=== PATIENT | male | born 1980 | race Caucasian/White ===

== ENCOUNTER → 2016-03-31 | Outpatient (CLI) | payer MEDICAID | LOC: RAD 10:39 | PROVIDERS: ATTEND Family Medicine | DX: M25.571 Pain in right ankle and joints of right foot (principal) ==

== ENCOUNTER 2016-04-20 21:28 | Emergency (ER) | payer MEDICAID ==
[2016-04-20] MEDS ORDERED: IBUPROFEN 800 MG TABLET PO ONE (21:42)
--- NOTE | 2016-04-20 21:45 | ER Document Report ---
ED Medical Screen (RME) - General Stated Complaint: ANKLE PAIN Notes: Patient states he initially injured right ankle about 3 months ago. States he had an x-ray on it which showed no fractures. In the last week and a half patient states he has rolled his ankle about 24 times. He states he continues to have some swelling to the ankle, and is very painful to walk. He states he needs to get this taken care of before it gets any worse. I have greeted and performed a rapid initial assessment of this patient. A comprehensive ED assessment and evaluation of the patient, analysis of test results and completion of the medical decision making process will be conducted by additional ED providers. TRAVEL OUTSIDE OF THE [place] IN LAST 30 DAYS: No - Related Data Allergies/Adverse Reactions: imipramine [Imipramine] Allergy (Severe, Verified 05/29/15 10:39) Hives Past Medical History - Past Medical History Cardiac Medical History: Reports: Hx Hypertension - hx of no meds Denies: Hx Coronary Artery Disease, Hx Heart Attack Pulmonary Medical History: Reports: Hx Asthma - bronchial has inhalers, Hx Bronchitis, Hx Pneumonia - hx of Denies: Hx COPD Neurological Medical History: Reports: Hx Seizures - petit mal as child 1985 no current meds. Denies: Hx Cerebrovascular Accident Musculoskeltal Medical History: Denies Hx Arthritis Psychiatric Medical History: Reports: Hx Attention Deficit Hyperactivity Disorder, Hx Depression Traumatic Medical History: Reports: Hx Spine Fracture - Immunizations Hx Diphtheria, Pertussis, Tetanus Vaccination: No Physical Exam - Vital signs Vitals: Temp Pulse Resp BP Pulse Ox 98.2 F 92 18 145/90 H 100 04/20/16 21:36 04/20/16 21:36 04/20/16 21:36 04/20/16 21:36 04/20/16 21:36 Course - Vital Signs Vital signs: Temp Pulse Resp BP Pulse Ox 98.2 F 92 18 145/90 H 100 04/20/16 21:36 04/20/16 21:36 04/20/16 21:36 04/20/16 21:36 04/20/16 21:36
--- NOTE | 2016-04-20 23:19 | ER Document Report ---
ED General - General Chief Complaint: Ankle Pain Stated Complaint: ANKLE PAIN Notes: Patient is a 36-year-old male who presents with complaint of pain in his right ankle. Patient is rolled his ankle many times in the last 3 months. He says is gone to the point that every time he puts his foot down that she feels as of his ankles can turn inward. He has not worn a brace. He is not use crutches. He is not provided a supportive to his anchor other than an occasional Marcus bandage. He has followed with his primary care doctor. He's had x-rays which were negative. He says his injured his ankle a times since his last x-ray 2 weeks ago. TRAVEL OUTSIDE OF THE [place] IN LAST 30 DAYS: No - Related Data Allergies/Adverse Reactions: imipramine [Imipramine] Allergy (Severe, Verified 05/29/15 10:39) Hives Past Medical History - Social History Smoking Status: Never Smoker Frequency of alcohol use: None Drug Abuse: None Family History: Reviewed & Not Pertinent - Past Medical History Cardiac Medical History: Reports: Hx Hypertension - hx of no meds Denies: Hx Coronary Artery Disease, Hx Heart Attack Pulmonary Medical History: Reports: Hx Asthma - bronchial has inhalers, Hx Bronchitis, Hx Pneumonia - hx of Denies: Hx COPD Neurological Medical History: Reports: Hx Seizures - petit mal as child 1985 no current meds. Denies: Hx Cerebrovascular Accident Renal/ Medical History: Denies: Hx Peritoneal Dialysis Musculoskeltal Medical History: Denies Hx Arthritis Psychiatric Medical History: Reports: Hx Attention Deficit Hyperactivity Disorder, Hx Depression Traumatic Medical History: Reports: Hx Spine Fracture - Immunizations Hx Diphtheria, Pertussis, Tetanus Vaccination: No Review of Systems - Review of Systems Notes: My Normal Review Basic REVIEW OF SYSTEMS: CONSTITUTIONAL : Denies fever, chills, or sweats. Denies recent illness. MUSCULOSKELETAL: Right ankle pain SKIN: Denies rash or skin lesions. NEUROLOGICAL: Denies altered mental status or loss of consciousness. Denies headache. Denies weakness or paralysis or loss of use of either side. Denies problems with gait or speech. Denies sensory or motor loss. ALL OTHER SYSTEMS REVIEWED AND NEGATIVE. Physical Exam - Vital signs Vitals: Temp Pulse Resp BP Pulse Ox 98.2 F 92 18 145/90 H 100 04/20/16 21:36 04/20/16 21:36 02/04/17 21:36 04/20/16 21:36 04/20/16 21:36 - Notes Notes: General Appearance: Well nourished, alert, cooperative, no acute distress, no obvious discomfort. Vitals: reviewed, See vital signs table. Extremities: strength 5/5 in all extremities, good pulses in all extremities, patient's has pain with palpation of both medial lateral aspect of the right ankle. There is no pain palpation of Achilles tendon. Distal foot is nontender., no edema. Patient has good strength in the foot. Good distal sensation. Skin: warm, dry, appropriate color, no rash Neuro: speech clear, oriented x 3, normal affect, responds appropriately to questions. Course - Vital Signs Vital signs: Temp Pulse Resp BP Pulse Ox 98.2 F 92 18 145/90 H 100 04/20/16 21:36 04/20/16 21:36 04/20/16 21:36 04/20/16 21:36 04/20/16 21:36 - Transfer of Care Notes: 04/21/16 00:22 Patient's history and physical exam findings are consistent with a sprain ankle. Patient will be discharged home. Patient given an ankle splint. I strongly encouraged him use crutches. He has crutches at home. I encourage lower for him to the orthopedic office being that he's had multiple recurrent ankle sprains and injuries in the last 3 months and his ankle has been unstable for him. Patient's x-ray shows no acute concerning findings. Patient agrees with plan will be discharged home. Dictation of this chart was performed using voice recognition software; therefore, there may be some unintended grammatical errors. Discharge - Discharge Clinical Impression: Ankle sprain Qualifiers: Encounter type: initial encounter Involved ligament of ankle: unspecified ligament Laterality: right Qualified Code(s): S93.401A - Sprain of unspecified ligament of right ankle, initial encounter Condition: Good Disposition: HOME, SELF-CARE Instructions: Sprained Ankle ([facility]) Additional Instructions: Ankle Stirrup Splint You are to use an ankle brace called a stirrup splint. This type of brace allows you to place greater stresses on the ankle without risk of re-injury, and is often used for more severe ankle injuries such as avulsion fractures and ligament ruptures. The splint can be worn over a sock or tape. For proper support, wear the splint with a shoe over it. It's important that the splint fit properly. Adjust the heel tension, if needed. If your splint has air bladders, peel back the bottom of each air bladder, then move the Velcro attachment of the heel strap up or down. Air bladder pressure can be adjusted by pulling up the valve at the top, threading the air tube down into the main bladder, then blowing air into the bladder or squeezing it out. The two sides of the stirrup can be moved forward or back on your ankle by changing the attachment of the main straps. If you are unable to use the ankle comfortably in the splint, return for re -evaluation. Please wear the splints. Please use crutches at home. Please be nonweightbearing as much as possible for the next week. Please follow-up with the orthopedic clinic for further evaluation and for further treatment options such as possible referral to physical therapy or more definitive treatment as they feel necessary. Referrals: ABA CALLE MD [ACTIVE STAFF] - Follow up in 3-5 days
[2016-04-21 00:34] VITALS: BP 144/100
== END 2016-04-21 00:32 | disposition home or self-care (01) ==
LOC: ER 21:28
DX: S93.401A Sprain of unspecified ligament of right ankle, initial encounter (principal); X50.9XXA Other and unspecified overexertion or strenuous movements or postures, initial encounter; M25.571 Pain in right ankle and joints of right foot; I10 Essential (primary) hypertension; J45.909 Unspecified asthma, uncomplicated; Z88.8 Allergy status to other drugs, medicaments and biological substances
CPT/HCPCS: 99283; 73610; L1902; J3490

== ENCOUNTER → 2016-08-06 | Outpatient (CLI) | payer MEDICAID ==
--- NOTE | 2016-08-06 18:49 | RADIOLOGY REPORT (SQ) ---
EXAM DESCRIPTION: CHEST PA/LAT COMPLETED DATE/TIME: 08/06/2016 6:37 pm REASON FOR STUDY: COUGH COMPARISON: 02/19/2015 EXAM PARAMETERS: NUMBER OF VIEWS: two views TECHNIQUE: Digital Frontal and Lateral radiographic views of the chest acquired. RADIATION DOSE: NA LIMITATIONS: none FINDINGS: LUNGS AND PLEURA: Lung harvey are hyperexpanded but clear. No effusions. MEDIASTINUM AND HILAR STRUCTURES: No masses or contour abnormalities. HEART AND VASCULAR STRUCTURES: Heart normal size. No evidence for failure. BONES: No acute findings. HARDWARE: None in the chest. OTHER: No other significant finding. IMPRESSION: NO SIGNIFICANT RADIOGRAPHIC FINDING IN THE CHEST. TECHNICAL DOCUMENTATION: JOB ID: [id number] [employer] All Rights Reserved
== END ==
LOC: RAD 18:18
PROVIDERS: ATTEND Nurse Practitioner Acute Care
DX: R05 Cough (principal)
CPT/HCPCS: 71020

== ENCOUNTER 2017-02-03 19:52 | Emergency (ER) | payer SELFPAY ==
--- NOTE | 2017-02-03 20:32 | ER Document Report ---
ED Medical Screen (RME) - General Chief Complaint: R flank and testicular pain Stated Complaint: RIGHT FLANK,TESTICLE PAIN Time Seen by Provider: 02/03/17 20:30 Notes: Patient states she had the sudden onset of flank pain abdominal pain and testicle pain about an hour ago. He states it is excruciating. He states he had a kidney stone before and it did not feel like this. He states that any type of movement causes severe pain. When I asked him to point to where the worst pain as he points to his right lower quadrant. However on my limited exam he has no abdominal pain. Patient does have a swollen tender testicle. TRAVEL OUTSIDE OF THE [place] IN LAST 30 DAYS: No - Related Data Allergies/Adverse Reactions: imipramine [Imipramine] Allergy (Severe, Verified 05/29/15 10:39) Hives Past Medical History - Social History Chew tobacco use (# tins/day): No Frequency of alcohol use: Occasional Drug Abuse: None - Past Medical History Cardiac Medical History: Reports: Hx Hypertension - hx of no meds Denies: Hx Coronary Artery Disease, Hx Heart Attack Pulmonary Medical History: Reports: Hx Asthma - bronchial has inhalers, Hx Bronchitis, Hx Pneumonia - hx of Denies: Hx COPD Neurological Medical History: Reports: Hx Seizures - petit mal as child 1985 no current meds. Denies: Hx Cerebrovascular Accident Renal/ Medical History: Reports: Hx Kidney Stones. Denies: Hx Peritoneal Dialysis Musculoskeltal Medical History: Denies Hx Arthritis Psychiatric Medical History: Reports: Hx Attention Deficit Hyperactivity Disorder, Hx Depression Traumatic Medical History: Reports: Hx Spine Fracture Past Surgical History: Reports: Hx Kidney (Renal Surgery) - lithotripsy - Immunizations Hx Diphtheria, Pertussis, Tetanus Vaccination: No Physical Exam - Vital signs Vitals: Temp Pulse Resp BP Pulse Ox 98.6 F 83 17 164/94 H 98 02/03/17 20:01 02/03/17 20:01 02/03/17 20:01 02/03/17 20:01 02/03/17 20:01 Course - Vital Signs Vital signs: Temp Pulse Resp BP Pulse Ox 98.6 F 83 17 164/94 H 98 02/03/17 20:01 02/03/17 20:01 02/03/17 20:01 02/03/17 20:01 02/03/17 20:01
[2017-02-03 20:52] LABS: ABSOLUTE BASOPHILS # (AUTO) 0.2 10^3/uL (0.0-0.2); ABSOLUTE EOSINOPHILS # (AUTO) 0.1 10^3/uL (0.0-0.6); ABSOLUTE LYMPHOCYTES (AUTO) 2.1 10^3/uL (0.5-4.7); ABSOLUTE MONOCYTES (AUTO) 0.9 10^3/uL (0.1-1.4); ABSOLUTE NEUT (AUTO) 12.6 10^3/uL (1.7-8.2); BASOPHILS % (AUTO) 1.2 % (0-2); EOSINOPHILS % (AUTO) 0.5 % (0-6); HEMATOCRIT 44.9 % (37.9-51.0); HEMOGLOBIN 15.5 g/dL (13.5-17.0); HGB HCT DIFFERENCE 1.6; LYMPHOCYTES % (AUTO) 13.2 % (13-45); MEAN CORPUSCULAR HEMOGLOBIN 31.5 pg (27.0-33.4); MEAN CORPUSCULAR HGB CONC 34.6 g/dL (32.0-36.0); MEAN CORPUSCULAR VOLUME 91 fl (80-97); MONOCYTES % (AUTO) 5.6 % (3-13); RED BLOOD COUNT 4.93 10^6/uL (4.35-5.55); RED CELL DISTRIBUTION WIDTH 12.7 % (11.5-14.0); SEGMENTED NEUTROPHILS % (AUTO) 79.5 % (42-78); WHITE BLOOD COUNT 15.9 10^3/uL (4.0-10.5)
[2017-02-03 21:13] LABS: ALANINE AMINOTRANSFERASE 83 U/L (21-72); ALBUMIN 4.7 g/dL (3.5-5.0); ALKALINE PHOSPHATASE 90 U/L (38-126); ANION GAP 12 (5-19); ASPARTATE AMINO TRANSFERASE 46 U/L (17-59); BILIRUBIN,DIRECT 0.4 mg/dL (0.0-0.4); BILIRUBIN,TOTAL 1.2 mg/dL (0.2-1.3); BLOOD UREA NITROGEN 14 mg/dL (7-20); CALCIUM 10.2 mg/dL (8.4-10.2); CARBON DIOXIDE 25 mmol/L (22-30); CHLORIDE 106 mmol/L (98-107); CREATININE RESULT 1.04 mg/dL (0.52-1.25); GLUCOSE 113 mg/dL (75-110); POTASSIUM 4.4 mmol/L (3.6-5.0); SODIUM 143.2 mmol/L (137-145)
[2017-02-03] MEDS ORDERED: HYDROMORPHONE HCL INJ/PF 2 MG/ML AMPULE IV ONE (22:14)
[2017-02-03] MEDS ORDERED: KETOROLAC TROMETHAMINE INJ/PF 30 MG/1 ML SDV IV ONE (22:14)
[2017-02-03] MEDS ORDERED: NORMAL SALINE 1000 ML 1,000 ML IV ONE (22:15)
--- NOTE | 2017-02-03 22:16 | ER Document Report ---
ED GI/ - General Chief Complaint: R flank and testicular pain Stated Complaint: RIGHT FLANK,TESTICLE PAIN Time Seen by Provider: 02/03/17 20:30 Notes: Patient is a 36-year-old male with past medical history of hepatitis C who presents with acute onset of right testicular pain and right lower abdominal as well as right flank pain. Patient states that the pain started abruptly while at work and became progressively worse over the course of 30-40 minutes. He notes associated diaphoresis and one episode of nonbilious vomiting. Describes the pain as being localized mostly to his testicle. States it is a severe, constant, cramping pain. He states any movement worsens the pain. He has not tried any to improve the pain. He has no history of similar symptoms in the past. He denies any trauma to the testicle. He denies any dysuria. Fever or constitutional symptoms. TRAVEL OUTSIDE OF THE [place] IN LAST 30 DAYS: No - Related Data Allergies/Adverse Reactions: imipramine [Imipramine] Allergy (Severe, Verified 05/29/15 10:39) Hives Past Medical History - General Information source: Patient - Social History Smoking Status: Current Every Day Smoker Chew tobacco use (# tins/day): No Frequency of alcohol use: Occasional Drug Abuse: None Lives with: Spouse/Significant other Family History: Reviewed & Not Pertinent Patient has suicidal ideation: No Patient has homicidal ideation: No - Past Medical History Cardiac Medical History: Reports: Hx Hypertension - hx of no meds Denies: Hx Coronary Artery Disease, Hx Heart Attack Pulmonary Medical History: Reports: Hx Asthma - bronchial has inhalers, Hx Bronchitis, Hx Pneumonia - hx of Denies: Hx COPD Neurological Medical History: Reports: Hx Seizures - petit mal as child 1985 no current meds. Denies: Hx Cerebrovascular Accident Renal/ Medical History: Reports: Hx Kidney Stones. Denies: Hx Peritoneal Dialysis Musculoskeltal Medical History: Denies Hx Arthritis Psychiatric Medical History: Reports: Hx Attention Deficit Hyperactivity Disorder, Hx Depression Traumatic Medical History: Reports: Hx Spine Fracture Past Surgical History: Reports: Hx Kidney (Renal Surgery) - lithotripsy - Immunizations Hx Diphtheria, Pertussis, Tetanus Vaccination: No Review of Systems - Review of Systems Notes: Constitutional: Negative for fever. HENT: Negative for sore throat. Eyes: Negative for visual changes. Cardiovascular: Negative for chest pain. Respiratory: Negative for shortness of breath. Gastrointestinal: Positive for abdominal pain and vomiting Genitourinary: Positive right testicular pain Musculoskeletal: Negative for back pain. Skin: Negative for rash. Neurological: Negative for headaches, weakness or numbness. 10 point ROS negative except as marked above and in HPI. Physical Exam - Vital signs Vitals: Temp Pulse Resp BP Pulse Ox 98.6 F 83 17 164/94 H 98 02/03/17 20:01 02/03/17 20:01 02/03/17 20:01 02/03/17 20:01 02/03/17 20:01 Interpretation: Hypertensive Notes: PHYSICAL EXAMINATION: GENERAL: Appears moderately uncomfortable but no acute distress HEAD: Atraumatic, normocephalic. EYES: Pupils equal round and reactive to light, extraocular movements intact, sclera anicteric, conjunctiva are normal. ENT: nares patent, oropharynx clear without exudates. Moderately dry mucous membranes. NECK: Normal range of motion, supple without lymphadenopathy LUNGS: Breath sounds clear to auscultation bilaterally and equal. No wheezes rales or rhonchi. HEART: Regular rate and rhythm without murmurs ABDOMEN: Soft, mild right lower quadrant abdominal tenderness and right CVA tenderness., normoactive bowel sounds. No guarding, no rebound. No masses appreciated. : There is moderate swelling of the right testicle with diffuse tenderness to palpation of the testis as well as the epididymis. Absent cremasteric reflex on the right. Left testicle unremarkable exam. EXTREMITIES: Normal range of motion, no pitting or edema. No cyanosis. NEUROLOGICAL: No focal neurological deficits. Moves all extremities spontaneously and on command. PSYCH: Normal mood, normal affect. SKIN: Warm, Dry, normal turgor, no rashes or lesions noted. Course - Re-evaluation Re-evalutation: 02/03/17 22:15 Patient presents with a swollen, firm right testicle with acute onset of pain. Patient also has right flank and right lower abdominal pain but notes that this is not felt when he had kidney stones in the past. He does appear to be in a significant amount of pain. A testicular ultrasound was immediately obtained upon the patient's arrival to the emergency department. Given the nature of his presentation I am concerned about the possibility of an acute testicular torsion versus a possible acute nephrolithiasis although I would not expect a swollen firm testicle from a nephrolithiasis. Will emergently speak with the radiologist to confirm that this is a twisted testicle on ultrasound. 02/03/17 22:19 I called and spoke to the radiologist car installations supervisor who is informed me that the patient does not have evidence of testicular torsion on ultrasound has been both good venous and arterial blood flow to the right testicle. Epididymitis is noted. Awaiting urinalysis. 02/04/17 02:54 Urinalysis showed obvious signs of likely pyelonephritis versus orchitis given the obvious swelling and inflammation of the right testicle but was also concerning given his right flank tenderness. I therefore obtain a CT scan of the abdomen and pelvis to exclude an infected stone and this was unremarkable with exception of an intrarenal stone on the left which is not the site the patient is having any discomfort and I do not believe is related to his presentation today. Patient will be started on a 14 day course of cephalexin to cover E. coli. He notes he is monogamous with his spouse and is not concerned for the possibility of gonorrhea and chlamydia. Labs have been sent. At this time will discharge with return precautions and follow-up recommendations. Verbal discharge instructions given a the bedside and opportunity for questions given. Medication warnings reviewed. Patient is in agreement with this plan and has verbalized understanding of return precautions and the need for urology follow-up in the next 24-72 hours. - Vital Signs Vital signs: Temp Pulse Resp BP Pulse Ox 98.6 F 83 17 164/94 H 98 02/03/17 20:01 02/03/17 20:01 02/03/17 20:01 02/03/17 20:01 02/03/17 20:01 - Laboratory Result Diagrams: 02/03/17 20:36 02/03/17 20:36 Laboratory results interpreted by me: 02/03/17 02/03/17 02/03/17 20:36 20:36 23:29 WBC 15.9 H Seg Neutrophils % 79.5 H Absolute Neutrophils 12.6 H Glucose 113 H ALT 83 H Urine Protein 30 H Urine Blood LARGE H Urine Nitrite POSITIVE H Ur Leukocyte Esterase LARGE H - Diagnostic Test Radiology reviewed: Reports reviewed Discharge - Discharge Clinical Impression: Pain in right testicle, Orchitis of right testicle Urinary tract infection Qualifiers: Urinary tract infection type: site unspecified Hematuria presence: with hematuria Qualified Code(s): N39.0 - Urinary tract infection, site not specified ; R31.9 - Hematuria, unspecified; R31.9 - Hematuria, unspecified Condition: Fair Disposition: HOME, SELF-CARE Additional Instructions: You need to follow-up with a urologist at your earliest ability to clarify the origin of the infection in your urine. Please take all the antibiotics as prescribed. For your pain: Take ibuprofen 600 mg and acetaminophen 1000 mg every 6 hours together as needed for pain. If this does not control your pain you may take 15 mg of oral morphine every 4 hours as needed. Please be very careful about using the oral morphine and only use this for severe pain. Return if you develop persistent vomiting, worsening pain, fever, or any other symptoms that are worrisome to you. Prescriptions: Cephalexin Monohydrate [Keflex 500 mg Capsule] 500 mg PO Q6H 14 Days capsule Referrals: FORREST HAMPTON DO [Primary Care Provider] - Follow up as needed NELSON HECTOR II, MD [[facility]] - Follow up in 3-5 days
--- NOTE | 2017-02-03 22:25 | RADIOLOGY REPORT (SQ) ---
EXAM DESCRIPTION: U/S SCROTUM W/DOPPLER COMPLETED DATE/TIME: 02/03/2017 9:34 pm REASON FOR STUDY: right teste pain COMPARISON: None. TECHNIQUE: Static and realtime vazquez scale imaging of the scrotum and testes. Selected color Doppler and spectral images recorded to document blood flow. LIMITATIONS: None. FINDINGS: RIGHT: TESTICLE: Normal size. Normal echotexture. Normal blood flow. No mass. EPIDIDYMIS: The right epididymis appears hypervascular and the possibility of epididymitis should be considered. HYDROCELE OR VARICOCELE: No. HERNIA OR EXTRA-TESTICULAR MASS: No. OTHER: No other significant finding. LEFT: TESTICLE: Normal size. Normal echotexture. Normal blood flow. No mass. EPIDIDYMIS: Normal. HYDROCELE OR VARICOCELE: No. HERNIA OR EXTRA-TESTICULAR MASS: No. OTHER: No other significant finding. IMPRESSION: The right epididymis appears hypervascular and the possibility of epididymitis should be consider. NO EVIDENCE OF TESTICULAR MASS OR TORSION. TECHNICAL DOCUMENTATION: JOB ID: [id number] [employer]- All Rights Reserved
[2017-02-03 23:56] LABS: APPEARANCE,URINE CLOUDY; BILIRUBIN,URINE NEGATIVE (NEGATIVE); GLUCOSE, URINE NEGATIVE (NEGATIVE); KETONES,URINE NEGATIVE (NEGATIVE); LEUKOCYTE ESTERASE,URINE LARGE (NEGATIVE); NITRITE,URINE POSITIVE (NEGATIVE); PROTEIN,URINE 30 mg/dL (NEGATIVE); URINE SPECIFIC GRAVITY 1.017; UROBILINOGEN,URINE NEGATIVE mg/dL (<2.0)
[2017-02-04] MEDS ORDERED: CEFTRIAXONE 1 GM/D5W RTU 1 GM/50 ML RTUPB IV ONE ×2 (00:13→00:51)
[2017-02-04] MEDS ORDERED: HYDROMORPHONE HCL INJ/PF 2 MG/ML AMPULE IV ONE (00:41)
--- NOTE | 2017-02-04 02:41 | RADIOLOGY REPORT (SQ) ---
EXAM DESCRIPTION: CT LTD RENAL STONE PROTOCOL ON COMPLETED DATE/TIME: 02/04/2017 2:22 am REASON FOR STUDY: eval infected stone? COMPARISON: None. TECHNIQUE: CT scan of the abdomen and pelvis performed without intravenous or oral contrast. Images reviewed with lung, soft tissue, and bone windows. Reconstructed coronal and sagittal MPR images revi ewed. All images stored on PACS. All CT scanners at this facility use dose modulation, iterative reconstruction, and/or weight based d osing when appropriate to reduce radiation dose to as low as reasonably achievable (ALARA). [facility]: Dose Right [facility]: CareDose [facility]: Dose Right [facility]: Teradose 4D [facility]: Smart bTendo RADIATION DOSE: Up-to-date CT equipment and radiation dose reduction techniques were employed. CTDIv ol: 12.1 mGy. DLP: 774 mGy-cm.mGy. LIMITATIONS: None. FINDINGS: LOWER CHEST: No significant findings. No nodules or infiltrates. Hyperinflation of the rajeev ng bases. NON-CONTRASTED LIVER, SPLEEN, ADRENALS: Evaluation limited by lack of IV contrast. No identified sign ificant masses. PANCREAS: No masses. No peripancreatic inflammatory changes. GALLBLADDER: No identified stones by CT criteria. No inflammatory changes to suggest cholecystitis. RIGHT KIDNEY AND URETER: No suspicious masses. Assessment limited by lack of IV contrast. No signif icant calcifications. No hydronephrosis or hydroureter. LEFT KIDNEY AND URETER: No suspicious masses. Assessment limited by lack of IV contrast. 0.5 cm sto ne. No hydronephrosis or hydroureter. AORTA AND RETROPERITONEUM: No aneurysm. No retroperitoneal masses or adenopathy. BOWEL AND PERITONEAL CAVITY: No obvious masses or inflammatory changes. No free fluid. Small diverti culosis of the colon. APPENDIX: Normal. PELVIS, BLADDER, AND ABDOMINAL WALL:No abnormal masses. No free fluid. Bladder normal. BONES: No significant findings. Mild disc desiccation. OTHER: No other significant finding. IMPRESSION: No acute findings. 0.5 cm left renal stone. COMMENT: Quality ID # [id number]: Final reports with documentation of one or more dose reduction techniques (e.g., Automated exposure control, adjustment of the mA and/or kV according to patient size, use of iterative reconstruction technique) TECHNICAL DOCUMENTATION: JOB ID: [id number]- All Rights Reserved
[2017-02-04] MEDS ORDERED: HYDROCODONE/ACETAMINOPHEN 5-325 MG 6 TAB/DSPK PO PRN (02:59)
[2017-02-04 03:45] VITALS: BP 148/64
== END 2017-02-04 03:45 | disposition home or self-care (01) ==
LOC: ER 19:52
DX: N45.3 Epididymo-orchitis (principal); N39.0 Urinary tract infection, site not specified; R31.9 Hematuria, unspecified; N20.0 Calculus of kidney; R11.10 Vomiting, unspecified; R61 Generalized hyperhidrosis; F17.200 Nicotine dependence, unspecified, uncomplicated; I10 Essential (primary) hypertension; J45.909 Unspecified asthma, uncomplicated; Z88.8 Allergy status to other drugs, medicaments and biological substances
CPT/HCPCS: 96376; 99284; 96361; 96375; 96365; 36415; 87086; 85025; 87088; 80053; 81001; 87186; 76870; 93976; 76380; J1885; J1170 ×2; J7030; J0696

== ENCOUNTER 2017-02-28 16:35 | Emergency (ER) | payer SELFPAY ==
[2017-02-28 16:41] VITALS: BP 142/90
[2017-02-28] MEDS ORDERED: OXYCODONE-ACETAMINOPHEN 5-325 MG TABLET PO ONE (16:58)
[2017-02-28] MEDS ORDERED: AMOXICILLIN TR/POT CLAVULANATE 500-125 MG TAB PO ONE (16:59)
[2017-02-28] MEDS ORDERED: AMOXICILLIN TRIHYD 250 MG CAPSULE PO ONE (16:59)
[2017-02-28] MEDS ORDERED: DIPH/PERTUSS(ACELL)/TETANUS VAC/PF 0.5 ML SYR (>=10YO) IM ONE (16:59)
--- NOTE | 2017-02-28 17:30 | ER Document Report ---
HPI - HPI Patient complains to provider of: Animal bite Onset: Just prior to arrival Onset/Duration: Sudden Quality of pain: Achy Pain Level: 3 Context: Patient states that 2 dogs were fighting and he was attempting to separate them. Patient states 1 of the dogs accidentally bit his left forearm. Both animals immunizations are up-to-date. Patient with puncture wounds to left forearm and upper arm. Associated Symptoms: Other - Animal bite Exacerbated by: Movement Relieved by: Denies Similar symptoms previously: No Recently seen / treated by doctor: No - ROS ROS below otherwise negative: Yes Systems Reviewed and Negative: Yes All other systems reviewed and negative - CONSTITUTIONAL Constitutional: DENIES: Fever - NEURO Neurology: DENIES: Weakness - MUSCULOSKELETAL Musculoskeletal: REPORTS: Extremity pain. DENIES: Swelling - DERM Skin Problems: Puncture Wound Notes: Abrasions Past Medical History - General Information source: Patient - Social History Smoking Status: Current Every Day Smoker Chew tobacco use (# tins/day): No Smoking Education Provided: Yes Frequency of alcohol use: Occasional Drug Abuse: None Occupation: [employer] Lives with: Family Family History: Reviewed & Not Pertinent Patient has suicidal ideation: No Patient has homicidal ideation: No - Past Medical History Cardiac Medical History: Reports: Hx Hypertension - hx of no meds Denies: Hx Coronary Artery Disease, Hx Heart Attack Pulmonary Medical History: Reports: Hx Asthma - bronchial has inhalers, Hx Bronchitis, Hx Pneumonia - hx of Denies: Hx COPD Neurological Medical History: Reports: Hx Seizures - petit mal as child 1986 no current meds. Denies: Hx Cerebrovascular Accident Endocrine Medical History: Reports: Hx Diabetes Mellitus Type 2 Renal/ Medical History: Reports: Hx Kidney Stones. Denies: Hx Peritoneal Dialysis Musculoskeltal Medical History: Denies Hx Arthritis Psychiatric Medical History: Reports: Hx Attention Deficit Hyperactivity Disorder, Hx Depression Traumatic Medical History: Reports: Hx Spine Fracture Past Surgical History: Reports: Hx Kidney (Renal Surgery) - lithotripsy - Immunizations Hx Diphtheria, Pertussis, Tetanus Vaccination: No Vertical Provider Document - CONSTITUTIONAL Agree With Documented VS: Yes Exam Limitations: No Limitations General Appearance: WD/WN, No Apparent Distress - INFECTION CONTROL TRAVEL OUTSIDE OF THE [place] IN LAST 30 DAYS: No - HEENT HEENT: Atraumatic, Normocephalic - NECK Neck: Normal Inspection - RESPIRATORY Respiratory: No Respiratory Distress O2 Sat by Pulse Oximetry: 98 - CARDIOVASCULAR Pulses: Normal: Radial - BACK Back: Normal Inspection - MUSCULOSKELETAL/EXTREMETIES Musculoskeletal/Extremeties: MAEW, Tender - Left forearm tenderness, No Edema - NEURO Level of Consciousness: Awake, Alert, Appropriate Motor/Sensory: No Motor Deficit - DERM Integumentary: Warm, Dry Notes: Patient with multiple small puncture wounds to left forearm with abrasions to left forearm and left upper arm Course - Vital Signs Vital signs: Temp Pulse Resp BP Pulse Ox 98.1 F 100 20 142/90 H 98 02/28/17 16:41 02/28/17 16:41 02/28/17 16:41 02/28/17 16:41 02/28/17 16:41 - Diagnostic Test Radiology reviewed: Pending, Image reviewed Discharge - Discharge Clinical Impression: Dog bite Qualifiers: Encounter type: initial encounter Qualified Code(s): W54.0XXA - Bitten by dog, initial encounter Abrasion of arm, left Qualifiers: Encounter type: initial encounter Qualified Code(s): S40.812A - Abrasion of left upper arm, initial encounter Puncture wound of forearm Qualifiers: Encounter type: initial encounter Laterality: left Qualified Code(s): S51.832A - Puncture wound without foreign body of left forearm, initial encounter Condition: Stable Disposition: HOME, SELF-CARE Instructions: Abrasions ([facility]), Animal Bites ([facility]), Augmentin ([facility]), Puncture Wound ([facility]), Tetanus Immunization Given ([facility]) Additional Instructions: Return immediately for any new or worsening symptoms Followup with your primary care provider, call tomorrow to make a followup appointment Cleanse wounds daily and keep covered while they are healing Prescriptions: Amox Tr/Potassium Clavulanate [Augmentin 875-125 Tablet] 1 tab PO BID 7 Days tablet Oxycodone HCl/Acetaminophen [Percocet 5-325 mg Tablet] 1 tab PO ASDIR PRN #10 tablet PRN Reason: Forms: Smoking Cessation Education, Return to Work Referrals: FORREST HAMPTON DO [Primary Care Provider] - Follow up as needed
--- NOTE | 2017-02-28 17:31 | RADIOLOGY REPORT (SQ) ---
EXAM DESCRIPTION: HUMERUS LEFT COMPLETED DATE/TIME: 02/28/2017 5:14 pm REASON FOR STUDY: dogbite COMPARISON: None. NUMBER OF VIEWS: Two views. TECHNIQUE: Two radiographic images were acquired of the left humerus to include elbow and shoulder i n at least one projection. LIMITATIONS: None. FINDINGS: MINERALIZATION: Normal. BONES: No acute fracture or dislocation. No worrisome bone lesions. SOFT TISSUES: No obvious swelling or foreign body. OTHER: No other significant finding. IMPRESSION: NO RADIOGRAPHIC EVIDENCE OF ACUTE INJURY. TECHNICAL DOCUMENTATION: JOB ID: [id number] [place]-72 2010 [employer]- All Rights Reserved
--- NOTE | 2017-02-28 17:33 | RADIOLOGY REPORT (SQ) ---
EXAM DESCRIPTION: FOREARM LEFT COMPLETED DATE/TIME: 02/28/2017 5:14 pm REASON FOR STUDY: dogbite COMPARISON: None. NUMBER OF VIEWS: Two views. TECHNIQUE: Two radiographic images acquired of the left forearm, including elbow and wrist in at [address] one projection. LIMITATIONS: None. FINDINGS: MINERALIZATION: Normal. BONES: No acute fracture. No worrisome bone lesions. SOFT TISSUES: No obvious swelling or foreign body. OTHER: No other significant finding. IMPRESSION: NO RADIOGRAPHIC EVIDENCE OF ACUTE INJURY. TECHNICAL DOCUMENTATION: JOB ID: [id number] [place]-72 2010 [employer]- All Rights Reserved
== END 2017-02-28 17:45 | disposition home or self-care (01) ==
LOC: ER 16:35
DX: S51.832A Puncture wound without foreign body of left forearm, initial encounter (principal); S40.812A Abrasion of left upper arm, initial encounter; W54.0XXA Bitten by dog, initial encounter; F17.200 Nicotine dependence, unspecified, uncomplicated
CPT/HCPCS: 99283; 90471; 73090; 73060; 90715; J3490

== ENCOUNTER 2017-10-23 12:49 | Emergency (ER) | payer SELFPAY ==
[2017-10-23] MEDS ORDERED: ONDANSETRON HCL INJ/PF 4 MG/2 ML SDV IV ONE (15:28)
[2017-10-23] MEDS ORDERED: RINGERS SOLUTION,LACTATED 1,000 ML IV ONE (15:29)
--- NOTE | 2017-10-23 15:29 | ER Document Report ---
ED Medical Screen (RME) - General Chief Complaint: Abdominal Pain Stated Complaint: STOMACH PAIN Time Seen by Provider: 10/23/17 15:27 Notes: 37-year-old male to the emergency department chief complaint of nausea vomiting. Cannot keep anything down. Has been vomiting all morning. Pain in the left upper quadrant left lower quadrant. Denies any diarrhea. Not on any medications. No prior surgeries. On arrival to triage she had approximately 300 cc of emesis bile colored in a bag. TRAVEL OUTSIDE OF THE [place] IN LAST 30 DAYS: No - Related Data Allergies/Adverse Reactions: imipramine [Imipramine] Allergy (Severe, Verified 02/28/17 16:36) Hives Past Medical History - General Information source: Patient - Social History Cigarette use (# per day): Yes Frequency of alcohol use: None Drug Abuse: None Lives with: Family Family history: Reviewed & Not Pertinent - Past Medical History Cardiac Medical History: Reports: Hx Hypertension - hx of no meds Denies: Hx Coronary Artery Disease, Hx Heart Attack Pulmonary Medical History: Reports: Hx Asthma - bronchial has inhalers, Hx Bronchitis, Hx Pneumonia - hx of Denies: Hx COPD Neurological Medical History: Reports: Hx Seizures - petit mal as child 1985 no current meds. Denies: Hx Cerebrovascular Accident Endocrine Medical History: Reports: Hx Diabetes Mellitus Type 2 Renal/ Medical History: Reports: Hx Kidney Stones. Denies: Hx Peritoneal Dialysis Musculoskeltal Medical History: Denies Hx Arthritis Psychiatric Medical History: Reports: Hx Attention Deficit Hyperactivity Disorder, Hx Depression Traumatic Medical History: Reports: Hx Spine Fracture Past Surgical History: Reports: Hx Kidney (Renal Surgery) - lithotripsy - Immunizations Hx Diphtheria, Pertussis, Tetanus Vaccination: No Review of Systems - Review of Systems Notes: Constitutional: denies: Chills, Diaphoresis, Fever, Malaise, Weakness EENT: denies: Eye discharge, Blurred vision, Tearing, Double vision, Nose congestion, Nose discharge, Throat swelling, Mouth pain Cardiovascular: denies: Palpitations, Heart racing, Orthopnea, Dyspnea, Chest pain Respiratory: denies: Cough, Hurts to breathe, Wheezing, Shortness of breath Gastrointestinal: Patient with abdominal pain, nausea and vomiting. No diarrhea. No blood in the stool. No blood in the vomit. Green bile vomiting Genitourinary: denies: Burning, Dysuria, Discharge, Frequency, Flank pain, Hematuria Musculoskeletal: denies: Joint pain, Joint swelling, Muscle pain, Muscle stiffness, back pain Hematologic/Lymphatic: denies: Anemia, Easy bleeding, Easy bruising, Blood clots Neurological/Psychological: denies: Confusion, Dementia, Depression, Loss of consciousness Skin: No lesions, no masses, no skin breakdown, no abscesses Physical Exam - Vital signs Vitals: Temp Pulse Resp BP Pulse Ox 98.4 F 79 18 144/105 H 99 10/23/17 13:26 10/23/17 13:26 10/23/17 13:26 10/23/17 13:10/23/17 13:26 Interpretation: Normal - General General appearance: Alert. No: Appears well In distress: Moderate - Current distress due to vomiting - HEENT Head: Normocephalic, Atraumatic Eyes: Normal Pupils: PERRL - Respiratory Respiratory status: No respiratory distress Chest status: Nontender Breath sounds: Normal Chest palpation: Normal - Cardiovascular Rhythm: Regular Heart sounds: Normal auscultation Murmur: No - Abdominal Inspection: Normal Distension: Distended Bowel sounds: Hypoactive Tenderness: Tender - This palpation epigastric and left upper quadrant left lower quadrant with mild guarding Organomegaly: No organomegaly - Back Back: Normal, Nontender - Extremities General upper extremity: Normal inspection, Nontender, Normal color, Normal ROM , Normal temperature General lower extremity: Normal inspection, Nontender, Normal color, Normal ROM , Normal temperature, Normal weight bearing. No: Autumn's sign - Neurological Neuro grossly intact: Yes Cognition: Normal Orientation: AAOx4 Mary Coma Scale Eye Opening: Spontaneous Mary Coma Scale Verbal: Oriented [place] Coma Scale Motor: Obeys Commands [place] Coma Scale Total: 15 Speech: Normal - Psychological Associated symptoms: Normal affect, Normal mood - Skin Skin Temperature: Warm Skin Moisture: Dry Skin Color: Normal Course - Re-evaluation Re-evalutation: 10/23/17 15:34 Patient obviously uncomfortable. IV ordered. Fluids ordered. Zofran ordered. Hypoactive bowel sounds. X-ray ordered but anticipate needing CT scan as well. - Vital Signs Vital signs: Temp Pulse Resp BP Pulse Ox 98.4 F 79 18 145/104 H 99 10/23/17 13:26 10/23/17 13:26 10/23/17 13:26 10/23/17 13:29 10/23/17 13:26 - Laboratory Result Diagrams: 10/23/17 15:54 10/23/17 15:54 Laboratory results interpreted by me: 10/23/17 10/23/17 10/23/17 15:54 15:54 15:54 WBC 13.4 H Seg Neutrophils % 89.2 H Lymphocytes % 8.1 L Monocytes % 2.4 L Absolute Neutrophils 11.9 H Glucose 147 H AST 104 H ALT 176 H Urine Protein 30 H Urine Blood LARGE H Doctor's Discharge - Discharge Clinical Impression: Kidney stone on left side Condition: Good Disposition: HOME, SELF-CARE Instructions: Kidney Stone ([facility]) Prescriptions: Ketorolac Tromethamine [Toradol 10 mg Tablet] 10 mg PO Q8H PRN 5 Days #15 tablet PRN Reason: Ondansetron [Zofran Odt 4 mg Tablet] 1 - 2 tab PO Q4H PRN #15 tab.rapdis PRN Reason: For Nausea/Vomiting Oxycodone HCl/Acetaminophen [Percocet 5-325 mg Tablet] 1 - 2 tab PO Q8H PRN 5 Days #15 tablet PRN Reason: Tamsulosin HCl [Flomax 0.4 mg Cap.sr] 0.4 mg PO DAILY #7 cap.sr.24h Forms: Return to Work Referrals: FORREST HAMPTON DO [Primary Care Provider] - Follow up as needed ZEB DIMAS DO [[employer] ATTENDANT] - Follow up as needed
[2017-10-23] MEDS ORDERED: NORMAL SALINE 1000 ML 1,000 ML IV ONE (15:44)
[2017-10-23] MEDS ORDERED: KETOROLAC TROMETHAMINE INJ/PF 30 MG/1 ML SDV IV ONE (16:06)
--- NOTE | 2017-10-23 16:10 | RADIOLOGY REPORT (SQ) ---
EXAM DESCRIPTION: ACUTE ABDOMEN SERIES COMPLETED DATE/TIME: 10/23/2017 3:58 pm REASON FOR STUDY: abd pain COMPARISON: 02/23/2015 NUMBER OF VIEWS: Three views. TECHNIQUE: Frontal chest, supine abdomen and upright/ abdomen radiographic images acquired. LIMITATIONS: None. FINDINGS: CHEST: Lungs clear of infiltrates. FREE AIR: None. No abnormal gas collections. BOWEL GAS PATTERN: Nonobstructive pattern. No dilated loops or air fluid levels. CALCIFICATIONS: Some small calcifications overlie the left kidney. HARDWARE: None in the abdomen. SOFT TISSUES: No gross mass or suggestion of organomegaly. BONES: No acute fracture. No worrisome bone lesions. OTHER: No other significant finding. IMPRESSION: Left renal calcifications. No acute finding. TECHNICAL DOCUMENTATION: JOB ID: [id number] [employer]- All Rights Reserved Reading location - IP/workstation name: [email or web address]
[2017-10-23 16:19] LABS: ABSOLUTE LYMPHOCYTES (AUTO) 1.1 10^3/uL (0.5-4.7); ABSOLUTE MONOCYTES (AUTO) 0.3 10^3/uL (0.1-1.4); ABSOLUTE NEUT (AUTO) 11.9 10^3/uL (1.7-8.2); BASOPHILS % (AUTO) 0.3 % (0-2); HEMOGLOBIN 15.9 g/dL (13.5-17.0); LYMPHOCYTES % (AUTO) 8.1 % (13-45); MEAN CORPUSCULAR HEMOGLOBIN 31.9 pg (27.0-33.4); MEAN CORPUSCULAR VOLUME 94 fl (80-97); MONOCYTES % (AUTO) 2.4 % (3-13); PLATELET COUNT 229 10^3/uL (150-450); RED CELL DISTRIBUTION WIDTH 12.8 % (11.5-14.0); SEGMENTED NEUTROPHILS % (AUTO) 89.2 % (42-78); TOTAL CELLS COUNTED % (AUTO) 100 %; WHITE BLOOD COUNT 13.4 10^3/uL (4.0-10.5)
[2017-10-23 16:46] LABS: ALANINE AMINOTRANSFERASE 176 U/L (21-72); ALBUMIN 4.9 g/dL (3.5-5.0); ALKALINE PHOSPHATASE 92 U/L (38-126); ANION GAP 11 (5-19); APPEARANCE,URINE CLOUDY; ASPARTATE AMINO TRANSFERASE 104 U/L (17-59); BILIRUBIN,DIRECT 0.3 mg/dL (0.0-0.4); BILIRUBIN,TOTAL 1.3 mg/dL (0.2-1.3); BILIRUBIN,URINE NEGATIVE (NEGATIVE); BLOOD UREA NITROGEN 13 mg/dL (7-20); CALCIUM 9.8 mg/dL (8.4-10.2); CARBON DIOXIDE 30 mmol/L (22-30); CHLORIDE 100 mmol/L (98-107); COLOR,URINE YELLOW; GLUCOSE 147 mg/dL (75-110); GLUCOSE, URINE NEGATIVE (NEGATIVE); KETONES,URINE NEGATIVE (NEGATIVE); LEUKOCYTE ESTERASE,URINE NEGATIVE (NEGATIVE); LIPASE 95.7 U/L (23-300); NITRITE,URINE NEGATIVE (NEGATIVE); PROTEIN,URINE 30 mg/dL (NEGATIVE); SODIUM 141.2 mmol/L (137-145); TOTAL PROTEIN 8.2 g/dL (6.3-8.2); URINE SPECIFIC GRAVITY 1.019; UROBILINOGEN,URINE NEGATIVE mg/dL (<2.0)
--- NOTE | 2017-10-23 17:26 | RADIOLOGY REPORT (SQ) ---
EXAM DESCRIPTION: CT ABD/PELVIS NO ORAL OR IV COMPLETED DATE/TIME: 10/23/2017 5:10 pm REASON FOR STUDY: abd pain and vomiting COMPARISON: None. TECHNIQUE: CT scan of the abdomen and pelvis performed without intravenous or oral contrast. Images reviewed with lung, soft tissue, and bone windows. Reconstructed coronal and sagittal MPR images revi ewed. All images stored on PACS. All CT scanners at this facility use dose modulation, iterative reconstruction, and/or weight based d osing when appropriate to reduce radiation dose to as low as reasonably achievable (ALARA). [facility]: Dose Right [facility]: CareDose [facility]: Dose Right [facility]: Teradose 4D [facility]: Smart My-Hammer RADIATION DOSE: CT Rad equipment meets quality standard of care and radiation dose reduction techniq ues were employed. CTDIvol: 10.5 mGy. DLP: 596 mGy-cm.mGy. LIMITATIONS: None. FINDINGS: LOWER CHEST: No significant findings. No nodules or infiltrates. NON-CONTRASTED LIVER, SPLEEN, ADRENALS: Evaluation limited by lack of IV contrast. No identified sign ificant masses. PANCREAS: No masses. No peripancreatic inflammatory changes. GALLBLADDER: No identified stones by CT criteria. No inflammatory changes to suggest cholecystitis. RIGHT KIDNEY AND URETER: No suspicious masses. Assessment limited by lack of IV contrast. There are lower pole 2 mm calcified stones. No hydronephrosis or hydroureter. LEFT KIDNEY AND URETER: No suspicious masses. Assessment limited by lack of IV contrast. 5 mm calci fied stone in the proximal left ureter with moderate hydronephrosis - hydroureter. There are lower po le 2-3 mm calcified stones. AORTA AND RETROPERITONEUM: No aneurysm. No retroperitoneal masses or adenopathy. BOWEL AND PERITONEAL CAVITY: No obvious masses or inflammatory changes. No free fluid. APPENDIX: Normal. PELVIS, BLADDER, AND ABDOMINAL WALL:No abnormal masses. No free fluid. Bladder normal. BONES: No acute findings. OTHER: No other significant finding. IMPRESSION: 5 mm calcified stone in the proximal left ureter with moderate hydronephrosis - hydroure ter. COMMENT: Quality ID # [id number]: Final reports with documentation of one or more dose reduction techniques (e.g., Automated exposure control, adjustment of the mA and/or kV according to patient size, use of iterative reconstruction technique) TECHNICAL DOCUMENTATION: JOB ID: [id number] [place]-72 2010 [employer]- All Rights Reserved Reading location - IP/workstation name: [email or web address]
[2017-10-23] MEDS ORDERED: TAMSULOSIN HCL 0.4 MG CAP.SR.24H PO ONE (17:41)
[2017-10-23] MEDS ORDERED: HYDROMORPHONE HCL INJ/PF 2 MG/ML AMPULE IV ONE (17:41)
[2017-10-23 18:35] VITALS: BP 116/73
== END 2017-10-23 18:35 | disposition home or self-care (01) ==
LOC: ER 12:49
DX: N20.0 Calculus of kidney (principal); R10.9 Unspecified abdominal pain; R11.2 Nausea with vomiting, unspecified; I10 Essential (primary) hypertension; E11.9 Type 2 diabetes mellitus without complications; Z87.442 Personal history of urinary calculi
CPT/HCPCS: 99284; 96374; 96375; 36415; 83690; 85025; 80053; 81001; 83605; 74022; 74176; J1885; J1170; J2405; J7030

== ENCOUNTER 2018-01-26 13:09 | Emergency (ER) | payer SELFPAY ==
--- NOTE | 2018-01-26 14:24 | ER Document Report ---
ED Medical Screen (RME) - General Chief Complaint: Flu Symptoms Stated Complaint: ABDOMINAL PAIN AND VOMITING Time Seen by Provider: 01/26/18 14:17 Notes: 37-year-old male patient with history of diabetes on metformin, and kidney stones and no flu shot this year. Onset yesterday of fever, frequent cough with dark green sputum, nasal congestion, some nausea vomiting, left flank and abdomen pain, painful urination. I have greeted and performed a rapid initial assessment of this patient. A comprehensive ED assessment and evaluation of the patient, analysis of test results and completion of the medical decision making process will be conducted by additional ED providers. TRAVEL OUTSIDE OF THE [place] IN LAST 30 DAYS: No - Related Data Allergies/Adverse Reactions: imipramine [Imipramine] Allergy (Severe, Verified 01/26/18 13:16) Hives Past Medical History - Social History Family history: Reviewed & Not Pertinent - Past Medical History Cardiac Medical History: Reports: Hx Hypertension - hx of no meds Denies: Hx Coronary Artery Disease, Hx Heart Attack Pulmonary Medical History: Reports: Hx Asthma - bronchial has inhalers, Hx Bronchitis, Hx Pneumonia - hx of Denies: Hx COPD Neurological Medical History: Reports: Hx Seizures - petit mal as child 1986 no current meds. Denies: Hx Cerebrovascular Accident Endocrine Medical History: Reports: Hx Diabetes Mellitus Type 2 Renal/ Medical History: Reports: Hx Kidney Stones. Denies: Hx Peritoneal Dialysis Musculoskeltal Medical History: Denies Hx Arthritis Psychiatric Medical History: Reports: Hx Attention Deficit Hyperactivity Disorder, Hx Depression Traumatic Medical History: Reports: Hx Spine Fracture Past Surgical History: Reports: Hx Kidney (Renal Surgery) - lithotripsy - Immunizations Hx Diphtheria, Pertussis, Tetanus Vaccination: No Physical Exam - Vital signs Vitals: Temp Pulse Resp BP Pulse Ox 101.6 F H 121 H 18 143/94 H 97 01/26/18 13:31 01/26/18 13:31 01/26/18 13:31 01/26/18 13:31 01/26/18 13:31 Course - Vital Signs Vital signs: Temp Pulse Resp BP Pulse Ox 101.6 F H 121 H 18 143/94 H 97 01/26/18 13:31 01/26/18 13:31 01/26/18 13:31 01/26/18 13:31 01/26/18 13:31 Doctor's Discharge - Discharge Referrals: FORREST HAMPTON, [Primary Care Provider] - Follow up as needed
[2018-01-26] MEDS ORDERED: OXYCODONE-ACETAMINOPHEN 5-325 MG TABLET PO ONE (14:25)
[2018-01-26] MEDS ORDERED: ONDANSETRON 4 MG TAB.RAPDIS PO ONE (14:25)
[2018-01-26] MEDS ORDERED: ACETAMINOPHEN 325 MG TABLET PO ONE (14:25)
[2018-01-26] MEDS ORDERED: NORMAL SALINE 1000 ML 1,000 ML IV ONE (15:02)
--- NOTE | 2018-01-26 15:06 | ER Document Report ---
ED General - General Chief Complaint: Flu Symptoms Stated Complaint: ABDOMINAL PAIN AND VOMITING Time Seen by Provider: 01/26/18 14:17 Mode of Arrival: Ambulatory Information source: Patient Notes: 37-year-old male presents emergency department with complaints of rhinorrhea, dry cough, fever, chills, left flank pain, nausea, vomiting, dysuria. Patient states that all of his symptoms started this morning. Patient states that he checked his temperature at home and is been around 101. Patient denies taking any medication for symptom relief. Patient states that he does have a history of kidney stones. Patient states he had to have lithotripsy performed. Patient states that he is not sure if the left flank pain he is feeling is similar to his previous stones. He denies any hematuria, increased urgency, increased frequency, penile pain, testicular pain, penile discharge, diarrhea, constipation. Patient denies a history of sick contacts. TRAVEL OUTSIDE OF THE [place] IN LAST 30 DAYS: No - HPI Onset: This morning Onset/Duration: Sudden Quality of pain: Achy Severity: Mild Associated symptoms: Chills, Fever, Rhinnorhea Exacerbated by: Denies Relieved by: Denies Similar symptoms previously: No Recently seen / treated by doctor: No - Related Data Allergies/Adverse Reactions: imipramine [Imipramine] Allergy (Severe, Verified 01/26/18 13:16) Hives Past Medical History - General Information source: Patient - Social History Smoking Status: Current Every Day Smoker Family History: Reviewed & Not Pertinent Patient has suicidal ideation: No Patient has homicidal ideation: No - Past Medical History Cardiac Medical History: Reports: Hx Hypertension - hx of no meds Denies: Hx Coronary Artery Disease, Hx Heart Attack Pulmonary Medical History: Reports: Hx Asthma - bronchial has inhalers, Hx Bronchitis, Hx Pneumonia - hx of Denies: Hx COPD Neurological Medical History: Reports: Hx Seizures - petit mal as child 1985 no current meds. Denies: Hx Cerebrovascular Accident Endocrine Medical History: Reports: Hx Diabetes Mellitus Type 2 Renal/ Medical History: Reports: Hx Kidney Stones. Denies: Hx Peritoneal Dialysis Musculoskeletal Medical History: Denies Hx Arthritis Psychiatric Medical History: Reports: Hx Attention Deficit Hyperactivity Disorder, Hx Depression Traumatic Medical History: Reports: Hx Spine Fracture Past Surgical History: Reports: Hx Kidney (Renal Surgery) - lithotripsy - Immunizations Hx Diphtheria, Pertussis, Tetanus Vaccination: No Review of Systems - Review of Systems Constitutional: Chills, Fever EENT: Nose discharge Cardiovascular: No symptoms reported Respiratory: Cough Gastrointestinal: Nausea, Vomiting Genitourinary: Burning, Dysuria, Flank pain Male Genitourinary: No symptoms reported Musculoskeletal: No symptoms reported Skin: No symptoms reported Hematologic/Lymphatic: No symptoms reported Neurological/Psychological: No symptoms reported -: Yes All other systems reviewed and negative Physical Exam - Vital signs Vitals: Temp Pulse Resp BP Pulse Ox 101.6 F H 121 H 18 143/94 H 97 01/26/18 13:31 01/26/18 13:31 01/26/18 13:01/26/18 13:01/26/18 13:31 - Notes Notes: PHYSICAL EXAMINATION: GENERAL: Well-appearing, well-nourished and in no acute distress. HEAD: Atraumatic, normocephalic. EYES: Pupils equal round and reactive to light, extraocular movements intact, sclera anicteric, conjunctiva are normal. ENT: Nares patent, oropharynx clear without exudates. Moist mucous membranes. NECK: Normal range of motion, supple without lymphadenopathy LUNGS: Breath sounds clear to auscultation bilaterally and equal. No wheezes rales or rhonchi. HEART: Tachycardic. S1S2 appreciated. ABDOMEN: Soft, tenderness to palpation in the left lower quadrant. No rebound or guarding. Normal active bowel sounds. Musculoskeletal: Normal range of motion, no pitting or edema. No cyanosis. NEUROLOGICAL: Cranial nerves grossly intact. Normal speech, normal gait. Normal sensory, motor exams PSYCH: Normal mood, normal affect. SKIN: Warm, Dry, normal turgor, no rashes or lesions noted. Course - Re-evaluation Re-evalutation: Labs and imaging obtained. Patient's white blood cell count is elevated 11.9. Urinalysis has white blood cells and red blood cells in the urine. No leukocytes or nitrites appreciated. CT of the abdomen pelvis was done as the patient is having left-sided flank pain. A 3-4 mm stone was appreciated at the distal left UVJ. No hydro-nephrosis or hydroureter was appreciated. With the patient having a fever, I will start on keflex for UTI. I will provide norco, flomax, and urology followup. Patient told to take medication as directed, to follow up with PCP and urology this week, and to return for worsening symptoms. - Vital Signs Vital signs: Temp Pulse Resp BP Pulse Ox 98.2 F 72 16 121/72 97 01/26/18 17:58 01/26/18 17:58 01/26/18 17:58 01/26/18 17:58 01/26/18 17:58 - Laboratory Result Diagrams: 01/26/18 14:36 01/26/18 14:36 Laboratory results interpreted by me: 01/26/18 01/26/18 01/26/18 14:36 14:36 14:36 WBC 11.9 H Absolute Neutrophils 8.7 H Chloride 96 L Glucose 135 H Total Bilirubin 2.0 H Direct Bilirubin 0.6 H AST 138 H ALT 294 H Urine Protein 30 H Urine Glucose (UA) 50 H Urine Ketones 20 H Urine Urobilinogen 4.0 H Discharge - Discharge Clinical Impression: Kidney stone on left side Urinary tract infection Qualifiers: Urinary tract infection type: site unspecified Hematuria presence: with hematuria Qualified Code(s): N39.0 - Urinary tract infection, site not specified ; R31.9 - Hematuria, unspecified; R31.9 - Hematuria, unspecified Condition: Good Disposition: HOME, SELF-CARE Instructions: Cephalexin ([facility]), Urinary Tract Infection ([facility]), Kidney Stone ( [facility]) Prescriptions: Cephalexin Monohydrate [Keflex 500 mg Capsule] 500 mg PO BID 5 Days #14 capsule Hydrocodone/Acetaminophen [[place] 5-325 mg Tablet] 1 tab PO Q4 #10 tablet Ondansetron [Zofran Odt 4 mg Tablet] 1 tab PO Q4H PRN #15 tab.rapdis PRN Reason: For Nausea/Vomiting Tamsulosin HCl [Flomax 0.4 mg Cap.sr] 0.4 mg PO DAILY #7 cap.sr.24h Referrals: FORREST HAMPTON DO [Primary Care Provider] - Follow up as needed
[2018-01-26 15:09] LABS: A TYPE INFLUENZA AG NEGATIVE (NEGATIVE); B INFLUENZA AG NEGATIVE (NEGATIVE)
[2018-01-26 15:13] LABS: APPEARANCE,URINE SLIGHTLY-CLOUDY; BILIRUBIN,URINE NEGATIVE (NEGATIVE); GLUCOSE, URINE 50 mg/dL (NEGATIVE); KETONES,URINE 20 mg/dL (NEGATIVE); LEUKOCYTE ESTERASE,URINE NEGATIVE (NEGATIVE); NITRITE,URINE NEGATIVE (NEGATIVE); PROTEIN,URINE 30 mg/dL (NEGATIVE); URINE SPECIFIC GRAVITY 1.026
[2018-01-26 15:14] LABS: COLOR,URINE DARK YELLOW
[2018-01-26 15:21] LABS: ABSOLUTE BASOPHILS # (AUTO) 0.1 10^3/uL (0.0-0.2); ABSOLUTE EOSINOPHILS # (AUTO) 0.1 10^3/uL (0.0-0.6); ABSOLUTE MONOCYTES (AUTO) 1.1 10^3/uL (0.1-1.4); ABSOLUTE NEUT (AUTO) 8.7 10^3/uL (1.7-8.2); BASOPHILS % (AUTO) 0.7 % (0-2); EOSINOPHILS % (AUTO) 0.5 % (0-6); HEMATOCRIT 47.4 % (37.9-51.0); HEMOGLOBIN 16.7 g/dL (13.5-17.0); LYMPHOCYTES % (AUTO) 16.7 % (13-45); MEAN CORPUSCULAR HEMOGLOBIN 32.2 pg (27.0-33.4); MEAN CORPUSCULAR HGB CONC 35.1 g/dL (32.0-36.0); MEAN CORPUSCULAR VOLUME 92 fl (80-97); MONOCYTES % (AUTO) 9.3 % (3-13); PLATELET COUNT 219 10^3/uL (150-450); RED BLOOD COUNT 5.17 10^6/uL (4.35-5.55); RED CELL DISTRIBUTION WIDTH 12.8 % (11.5-14.0); SEGMENTED NEUTROPHILS % (AUTO) 72.8 % (42-78); TOTAL CELLS COUNTED % (AUTO) 100 %; WHITE BLOOD COUNT 11.9 10^3/uL (4.0-10.5)
[2018-01-26 15:25] LABS: ALANINE AMINOTRANSFERASE 294 U/L (21-72); ALBUMIN 4.9 g/dL (3.5-5.0); ALKALINE PHOSPHATASE 118 U/L (38-126); ANION GAP 16 (5-19); ASPARTATE AMINO TRANSFERASE 138 U/L (17-59); BILIRUBIN,DIRECT 0.6 mg/dL (0.0-0.4); BLOOD UREA NITROGEN 12 mg/dL (7-20); CALCIUM 9.8 mg/dL (8.4-10.2); CARBON DIOXIDE 28 mmol/L (22-30); CHLORIDE 96 mmol/L (98-107); GLUCOSE 135 mg/dL (75-110); POTASSIUM 4.2 mmol/L (3.6-5.0); SODIUM 139.6 mmol/L (137-145); TOTAL PROTEIN 8.2 g/dL (6.3-8.2)
--- NOTE | 2018-01-26 16:32 | RADIOLOGY REPORT (SQ) ---
EXAM DESCRIPTION: CT ABD/PELVIS WITH IV ONLY COMPLETED DATE/TIME: 01/26/2018 4:08 pm REASON FOR STUDY: L flank pain COMPARISON: 10/23/2017, 02/19/2015 CT abdomen and pelvis TECHNIQUE: CT scan of the abdomen and pelvis performed using helical scanning technique with dynamic intravenous contrast injection. No oral contrast. Images reviewed with lung, soft tissue, and bone windows. Reconstructed coronal and sagittal MPR images reviewed. Delayed images for evaluation of the urinary system also acquired. All images stored on PACS. All CT scanners at this facility use dose modulation, iterative reconstruction, and/or weight based d osing when appropriate to reduce radiation dose to as low as reasonably achievable (ALARA). [facility]: Dose Right [facility]: CareDose [facility]: Dose Right [facility]: Teradose 4D [facility]: [email or web address] CONTRAST TYPE AND DOSE: contrast/concentration: Isovue 350.00 mg/ml; Total Contrast Delivered: 100.0 ml; Total Saline Delivered: 47.0 ml RENAL FUNCTION: GFR > 60. RADIATION DOSE: CT Rad equipment meets quality standard of care and radiation dose reduction techniq ues were employed. CTDIvol: 10.3 - 14.6 mGy. DLP: 1457 mGy-cm.. LIMITATIONS: None. FINDINGS: 3-4 mm stone in the distal left ureter at the ureterovesical junction, without left hydron ephrosis or hydroureter. LOWER CHEST: No significant findings. No nodules or infiltrates. LIVER: Normal size. No masses. No dilated ducts. SPLEEN: Normal size. No focal lesions. PANCREAS: No masses. No significant calcifications. No adjacent inflammation or peripancreatic fluid collections. Pancreatic duct not dilated. GALLBLADDER: No identified stones by CT criteria. No inflammatory changes to suggest cholecystitis. ADRENAL GLANDS: No significant masses or asymmetry. RIGHT KIDNEY AND URETER: No solid masses. 5 mm stone right lower pole kidney. No hydronephrosis or hydroureter. LEFT KIDNEY AND URETER: No solid masses. 5 mm stone left lower pole kidney. No hydronephrosis or hydroureter. AORTA AND VESSELS: No aneurysm. No dissection. Renal arteries, SMA, celiac without stenosis. RETROPERITONEUM: No retroperitoneal adenopathy, hemorrhage or masses. BOWEL AND PERITONEAL CAVITY: No masses or inflammatory changes. No free fluid or peritoneal masses. APPENDIX: Normal. PELVIS: No mass. No free fluid. Normal bladder. ABDOMINAL WALL: No masses. No hernias. BONES: No significant or acute findings. OTHER: No other significant finding. IMPRESSION: 3-4 mm stone in the distal left ureter at the ureterovesical junction, without left hydr onephrosis or hydroureter. TECHNICAL DOCUMENTATION: JOB ID: [id number] Quality ID # [id number]: Final reports with documentation of one or more dose reduction techniques (e.g., Au tomated exposure control, adjustment of the mA and/or kV according to patient size, use of iterative reconstruction technique) 2010 [employer]- All Rights Reserved Reading location - IP/workstation name: [email or web address]
[2018-01-26] MEDS ORDERED: CEFTRIAXONE INJ 1000 MG VIAL IV ONE (16:49)
--- NOTE | 2018-01-26 17:52 | RADIOLOGY REPORT (SQ) ---
EXAM DESCRIPTION: CHEST SINGLE VIEW COMPLETED DATE/TIME: 01/26/2018 5:41 pm REASON FOR STUDY: cough COMPARISON: July 2016 EXAM PARAMETERS: NUMBER OF VIEWS: One view. TECHNIQUE: Single frontal radiographic view of the chest acquired. RADIATION DOSE: NA LIMITATIONS: None. FINDINGS: LUNGS AND PLEURA: No opacities, masses or pneumothorax. No pleural effusion. MEDIASTINUM AND HILAR STRUCTURES: No masses. Contour normal. HEART AND VASCULAR STRUCTURES: Heart normal in size. Normal vasculature. BONES: No acute findings. HARDWARE: None in the chest. OTHER: No other significant finding. IMPRESSION: NO ACUTE RADIOGRAPHIC FINDING IN THE CHEST. TECHNICAL DOCUMENTATION: JOB ID: [id number] [employer]- All Rights Reserved Reading location - IP/workstation name: [email or web address]
[2018-01-26 17:59] VITALS: BP 121/72
[2018-01-26] MEDS ORDERED: KETOROLAC TROMETHAMINE INJ/PF 30 MG/1 ML SDV IV ONE (18:00)
== END 2018-01-26 18:22 | disposition home or self-care (01) ==
LOC: ER 13:09
DX: N20.0 Calculus of kidney (principal); N39.0 Urinary tract infection, site not specified; R31.9 Hematuria, unspecified; J34.89 Other specified disorders of nose and nasal sinuses; R05 Cough; R50.9 Fever, unspecified; R10.9 Unspecified abdominal pain; R11.2 Nausea with vomiting, unspecified; R30.0 Dysuria; F17.200 Nicotine dependence, unspecified, uncomplicated; I10 Essential (primary) hypertension; J45.909 Unspecified asthma, uncomplicated; E11.9 Type 2 diabetes mellitus without complications; Z79.899 Other long term (current) drug therapy
CPT/HCPCS: 36415; 87040; 87086; 85025; 80053; 81001; 87804; 71045; 74177; S0119; J1885; J0696; J7030

== ENCOUNTER 2018-04-15 09:31 | Emergency (ER) | payer MEDICAID ==
[2018-04-15 09:42] VITALS: BP 134/95
[2018-04-15] MEDS ORDERED: ACETAMINOPHEN 325 MG TABLET PO ONE (09:49)
[2018-04-15] MEDS ORDERED: ALBUTEROL SULFATE HFA (90 MCG/PUFF) 8 GM MDI (1 MDI/ER DISP) IH ONE (09:49)
--- NOTE | 2018-04-15 09:51 | ER Document Report ---
HPI - HPI Time Seen by Provider: 04/15/18 09:45 Pain Level: 1 Notes: Patient is a 38-year-old male who presents to the ED complaining of nasal congestion/discharge, dry nonproductive cough, fever, body ache 1 day. Patient states that he is still eating and drinking without difficulties, but does have a decreased p.o. intake. He is still urinating normally having normal bowel movements. Patient has been using some [id number] meds for symptoms. He denies any significant past medical history including cardiopulmonary history and immunocompromised conditions aside from asthma. Patient requesting work note. Denies any current headache, neck pain, sore throat, chest pain, palpitations, syncope, shortness of breath, wheeze, dyspnea, abdominal pain, nausea/vomiting/diarrhea, urinary retention, dysuria, hematuria, or rash. - ROS Systems Reviewed and Negative: Yes All other systems reviewed and negative Past Medical History - Social History Smoking Status: Unknown if Ever Smoked Family History: Reviewed & Not Pertinent - Past Medical History Cardiac Medical History: Reports: Hx Hypertension - hx of no meds Denies: Hx Coronary Artery Disease, Hx Heart Attack Pulmonary Medical History: Reports: Hx Asthma - bronchial has inhalers, Hx Bronchitis, Hx Pneumonia - hx of Denies: Hx COPD Neurological Medical History: Reports: Hx Seizures - petit mal as child 1985 no current meds. Denies: Hx Cerebrovascular Accident Endocrine Medical History: Reports: Hx Diabetes Mellitus Type 2 Renal/ Medical History: Reports: Hx Kidney Stones. Denies: Hx Peritoneal Dialysis Musculoskeletal Medical History: Denies Hx Arthritis Psychiatric Medical History: Reports: Hx Attention Deficit Hyperactivity Disorder, Hx Depression Traumatic Medical History: Reports: Hx Spine Fracture Past Surgical History: Reports: Hx Kidney (Renal Surgery) - lithotripsy - Immunizations Hx Diphtheria, Pertussis, Tetanus Vaccination: No Vertical Provider Document - CONSTITUTIONAL Agree With Documented VS: Yes Notes: PHYSICAL EXAMINATION: GENERAL: Well-appearing, well-nourished and in no acute distress. A&Ox4. Answers questions appropriately. Moves comfortably w/o notable distress HEAD: Atraumatic, normocephalic. EYES: Pupils equal round and reactive to light, extraocular movements intact, sclera anicteric, conjunctiva are normal. ENT: EAC clear b/l. TM's intact b/l without erythema, fluid, or perforation. Nares patent and with clear discharge. oropharynx no erythema without exudates. No tonsilar hypertrophy without erythema or exudate. No palatine shift. Uvula midline. No tongue protrusion. No drooling, hoarseness, or airway compromise. Moist mucous membranes. No sinus tenderness. NECK: Normal range of motion, supple without lymphadenopathy. No rigidity/meningismus. LUNGS: Breath sounds clear to auscultation bilaterally and equal. No wheezes rales or rhonchi. No retractions HEART: Regular rate and rhythm without murmurs, rubs, gallops. ABDOMEN: Soft, nontender, nondistended abdomen. No guarding, no rebound. No masses appreciated. Normal bowel sounds present. No CVA tenderness bilaterally. No hepatosplenomegaly. NEUROLOGICAL: Normal speech, normal gait. Normal sensory, motor exams PSYCH: Normal mood, normal affect. SKIN: Warm, Dry, normal turgor, no rashes or lesions noted. - INFECTION CONTROL TRAVEL OUTSIDE OF THE [place] IN LAST 30 DAYS: No Course - Re-evaluation Re-evalutation: 04/15/18 09:50 Patient is an afebrile, well-hydrated, 38-year-old male who presents to the ED with acute URI, suspect influenza. Vitals are acceptable. PE is otherwise unremarkable. No labs or imaging warranted at this time based on H&P. Patient has no significant cardiopulmonary or immunocompromised medical conditions aside from asthma. Patient's lungs are clear to auscultation bilaterally without tachycardia, hypoxia, or tachypnea. Patient is tolerating p.o. without any difficulties. Thoroughly reviewed the risks, benefits, potential side effects, estimated cost without insurance with patient. After thorough review, patient requested Tamiflu at this time. Low suspicion for any meningitis, sepsis, peritonsillar/pharyngeal abscess, respiratory compromise, severe dehydration, or other emergent systemic condition at this time. Patient is aware this condition can change from initial presentation and he needs to monitor symptoms closely. Albuterol inhaler dispense provided. Conservative measures otherwise for symptoms. Recheck with your PCM in 3-5 days. Return to the ED with any worsening/concerning symptoms otherwise as reviewed in discharge. Patient is in agreement. - Vital Signs Vital signs: Temp Pulse Resp BP Pulse Ox 98.7 F 88 20 134/95 H 97 04/15/18 09:41 04/15/18 09:41 04/15/18 09:41 04/15/18 09:41 04/15/18 09:41 Discharge - Discharge Clinical Impression: Acute URI Condition: Stable Disposition: HOME, SELF-CARE Additional Instructions: Maintain adequate fluid intake Take meds as directed tylenol/ibuprofen as needed over the counter cold medication as needed for symptoms Humidified air may help Wash your hands regularly Wear a mask when coughing F/u: with your PCM in 3-5 days for a recheck Return to the ED with any fever, worsening pain, chest pain, palpitations, sy ncope, worsening ZELAYA, neck pain/stiffness, shortness of breath, wheezing, drooling, trouble swallowing/breathing, abdominal pain, n/v/d, rash, or worsening/concerning symptoms otherwise. Prescriptions: Oseltamivir Phosphate [Tamiflu 75 mg Capsule] 75 mg PO BID #10 capsule Forms: Elevated Blood Pressure, Return to Work Referrals: FORREST HAMPTON DO [Primary Care Provider] - Follow up as needed
== END 2018-04-15 10:12 | disposition home or self-care (01) ==
LOC: ER 09:31
DX: J06.9 Acute upper respiratory infection, unspecified (principal); R09.81 Nasal congestion; R05 Cough; R50.9 Fever, unspecified; R52 Pain, unspecified; I10 Essential (primary) hypertension; J45.909 Unspecified asthma, uncomplicated; E11.9 Type 2 diabetes mellitus without complications
CPT/HCPCS: 99283; J3490 ×2

== ENCOUNTER 2018-04-20 11:39 | Emergency (ER) | payer SELFPAY ==
[2018-04-20] MEDS ORDERED: ONDANSETRON 4 MG TAB.RAPDIS PO ONE (12:01)
[2018-04-20] MEDS ORDERED: IBUPROFEN 800 MG TABLET PO ONE (12:01)
--- NOTE | 2018-04-20 12:03 | ER Document Report ---
HPI - HPI Time Seen by Provider: 04/20/18 11:51 Onset: Last week Onset/Duration: Persistent Quality of pain: Achy Pain Level: 2 Context: Patient states he was seen here about a week ago and diagnosed with the flu. Patient states he does not have insurance and could not afford to get the Tamif rajeev prescription. Patient complains of continued fever body aches headache cough congestion and feeling weak. Patient does report some nausea and vomiting. Patient additionally reports that he has had some left side pain off and on over the past 3 days. Patient does report a previous history of kidney stones but denies any urinary symptoms. Associated Symptoms: Body/muscle aches, Nonproductive cough, Fever, Headache, Nausea, Vomiting, Rhinnorhea Exacerbated by: Denies Relieved by: Denies Similar symptoms previously: Yes Recently seen / treated by doctor: Yes - ROS ROS below otherwise negative: Yes Systems Reviewed and Negative: Yes All other systems reviewed and negative - CONSTITUTIONAL Constitutional: REPORTS: Fever, Chills - EENT EENT: REPORTS: Nasal Drainage-Clear, Congestion - CARDIOVASCULAR Cardiovascular: DENIES: Chest pain - RESPIRATORY Respiratory: REPORTS: Coughing - GASTROINTESTINAL Gastrointestinal: REPORTS: Nausea, Patient vomiting. DENIES: Abdominal Pain - URINARY Urinary: DENIES: Dysuria - MUSCULOSKELETAL Musculoskeletal: REPORTS: Back Pain - DERM Skin Color: Normal Skin Problems: None Past Medical History - General Information source: Patient - Social History Smoking Status: Current Every Day Smoker Smoking Education Provided: Yes Frequency of alcohol use: Occasional Drug Abuse: None Occupation: Water treatment Family History: Reviewed & Not Pertinent Patient has suicidal ideation: No Patient has homicidal ideation: No - Past Medical History Cardiac Medical History: Reports: Hx Hypertension Denies: Hx Coronary Artery Disease, Hx Heart Attack Pulmonary Medical History: Reports: Hx Asthma - bronchial has inhalers, Hx Bronchitis, Hx Pneumonia - hx of Denies: Hx COPD Neurological Medical History: Reports: Hx Seizures - petit mal as child 1985 no current meds. Denies: Hx Cerebrovascular Accident Endocrine Medical History: Reports: Hx Diabetes Mellitus Type 2 Renal/ Medical History: Reports: Hx Kidney Stones. Denies: Hx Peritoneal Dialysis Musculoskeletal Medical History: Denies Hx Arthritis Psychiatric Medical History: Reports: Hx Attention Deficit Hyperactivity Disorder, Hx Depression Traumatic Medical History: Reports: Hx Spine Fracture Past Surgical History: Reports: Hx Kidney (Renal Surgery) - lithotripsy - Immunizations Hx Diphtheria, Pertussis, Tetanus Vaccination: No Vertical Provider Document - CONSTITUTIONAL Agree With Documented VS: Yes Exam Limitations: No Limitations General Appearance: WD/WN, No Apparent Distress - INFECTION CONTROL TRAVEL OUTSIDE OF THE [place] IN LAST 30 DAYS: No - HEENT HEENT: Atraumatic, Normocephalic, Pharyngeal Tenderness, Pharyngeal Erythema. negative: Pharyngeal Exudate, Tympanic Membrane Red - NECK Neck: Normal Inspection, Supple. negative: Lymphadenopathy-Left, Lymphade nopathy-Right Notes: No meningismus - RESPIRATORY Respiratory: Breath Sounds Normal, No Respiratory Distress, Chest Non-Tender - CARDIOVASCULAR Cardiovascular: Regular Rate, Regular Rhythm, No Murmur - GI/ABDOMEN Gastrointestinal: Abdomen Soft, Abdomen Non-Tender, No Organomegaly - BACK Back: CVA Tenderness-Left - left - MUSCULOSKELETAL/EXTREMETIES Musculoskeletal/Extremeties: MAEW, FROM, Non-Tender - NEURO Level of Consciousness: Awake, Alert, Appropriate Motor/Sensory: No Motor Deficit - DERM Integumentary: Warm, Dry, No Rash Course - Re-evaluation Re-evalutation: 04/20/18 14:30 Patient without any objective fever here today. Patient reports having flank pain off and on only for the past 3 days although has had upper respiratory and flulike symptoms for over a week now. Urinalysis and ultrasound were obtained given patient's history of kidney stones in the past. Patient without any evidence of calcification noted on ultrasound. Patient has had 4 CT scans in the past 3 years at this facility. Due to concern about excessive radiation, ultrasound was ordered and then a KUB will be added to evaluate for any possible calcification. Patient does not have any objective fever has stable vital signs no leukocytosis and normal renal function. Will culture urine and treat prophylactically for infection at this time. Patient advised that he will need to follow-up with urology this week for further evaluation. Patient encouraged to call tomorrow for an appointment. 04/20/18 16:09 Reviewed patient's KUB results with Dr. Yusuf. Agrees with plan for outpatient follow-up with urology as well as culturing the urine and treating with antibiotics. Patient does present with flulike symptoms with incidental ureteral stone. Patient nontoxic in appearance with stable vital signs. Re viewed emergent or worsening symptoms that patient should return immediately for. Patient verbalized understanding and agrees with plan of care. - Vital Signs Vital signs: Temp Pulse Resp BP Pulse Ox 98.8 F 76 16 139/99 H 97 04/20/18 11:52 04/20/18 11:52 04/20/18 11:52 04/20/18 11:52 04/20/18 11:52 - Laboratory Result Diagrams: 04/20/18 13:06 04/20/18 13:06 Laboratory results interpreted by me: 04/20/18 16:10 Labs- Entire Visit 04/20/18 04/20/18 04/20/18 12:05 12:05 13:06 WBC 8.3 RBC 4.81 Hgb 15.9 Hct 45.2 MCV 94 MCH 33.0 MCHC 35.1 RDW 13.4 Plt Count 224 Seg Neutrophils % 57.0 Lymphocytes % 26.8 Monocytes % 7.1 Eosinophils % 7.9 H Basophils % 1.2 Absolute Neutrophils 4.7 Absolute Lymphocytes 2.2 Absolute Monocytes 0.6 Absolute Eosinophils 0.7 H Absolute Basophils 0.1 Sodium Potassium Chloride Carbon Dioxide Anion Gap BUN Creatinine Est GFR ( Amer) Est GFR (Non-Af Amer) Glucose Calcium Urine Color YELLOW Urine Appearance CLEAR Urine pH 5.0 Ur Specific [place] 1.019 Urine Protein NEGATIVE Urine Glucose (UA) NEGATIVE Urine Ketones NEGATIVE Urine Blood MODERATE H Urine Nitrite NEGATIVE Urine Bilirubin NEGATIVE Urine Urobilinogen 2.0 H Ur Leukocyte Esterase TRACE H Urine WBC (Auto) 6 Urine RBC (Auto) 8 Urine Bacteria (Auto) TRACE Squamous Epi Cells Auto 2 Urine Mucus (Auto) OCC Urine Ascorbic Acid NEGATIVE Group A Strep Rapid NEGATIVE 04/20/18 13:06 WBC RBC Hgb Hct MCV MCH MCHC RDW Plt Count Seg Neutrophils % Lymphocytes % Monocytes % Eosinophils % Basophils % Absolute Neutrophils Absolute Lymphocytes Absolute Monocytes Absolute Eosinophils Absolute Basophils Sodium 141.6 Potassium 4.3 Chloride 105 Carbon Dioxide 29 Anion Gap 8 BUN 9 Creatinine 0.66 Est GFR ( Amer) > 60 Est GFR (Non-Af Amer) > 60 Glucose 117 H Calcium 9.2 Urine Color Urine Appearance Urine pH Ur Specific [place] Urine Protein Urine Glucose (UA) Urine Ketones Urine Blood Urine Nitrite Urine Bilirubin Urine Urobilinogen Ur Leukocyte Esterase Urine WBC (Auto) Urine RBC (Auto) Urine Bacteria (Auto) Squamous Epi Cells Auto Urine Mucus (Auto) Urine Ascorbic Acid Group A Strep Rapid Discharge - Discharge Clinical Impression: Ureteral stone, Flu-like symptoms, Nausea Condition: Stable Disposition: HOME, SELF-CARE Instructions: Antinausea Medication ([facility]), Influenza ([facility]) Additional Instructions: Return immediately for any new or worsening symptoms Followup with your primary care provider, call tomorrow to make a followup appointment Follow-up with urology, call tomorrow for an appointment. It is important that you follow-up with urology. Urine culture is pending, we will call if you need any different treatment [facility] Website Address: [address] [place] [address], [place] [address] Prescriptions: Ciprofloxacin HCl [Cipro 500 mg Tablet] 500 mg PO BID #20 tablet Naproxen [Naprosyn 250 Nmg Tablet] 1 tab PO BID #14 tablet Promethazine HCl [Phenergan 25 mg Tablet] 25 mg PO Q6H PRN #10 tablet PRN Reason: Tamsulosin HCl [Flomax 0.4 mg Cap.sr] 0.4 mg PO DAILY #7 cap.sr.24h Forms: Smoking Cessation Education, Return to Work Referrals: FORREST HAMPTON DO [Primary Care Provider] - Follow up tomorrow
[2018-04-20 12:30] LABS: APPEARANCE,URINE CLEAR; BILIRUBIN,URINE NEGATIVE (NEGATIVE); COLOR,URINE YELLOW; GLUCOSE, URINE NEGATIVE (NEGATIVE); KETONES,URINE NEGATIVE (NEGATIVE); LEUKOCYTE ESTERASE,URINE TRACE (NEGATIVE); NITRITE,URINE NEGATIVE (NEGATIVE); PROTEIN,URINE NEGATIVE (NEGATIVE); URINE SPECIFIC GRAVITY 1.019
--- NOTE | 2018-04-20 13:14 | RADIOLOGY REPORT (SQ) ---
EXAM DESCRIPTION: CHEST 2 VIEWS COMPLETED DATE/TIME: 04/20/2018 1:05 pm REASON FOR STUDY: cough COMPARISON: 01/26/2018. EXAM PARAMETERS: NUMBER OF VIEWS: two views TECHNIQUE: Digital Frontal and Lateral radiographic views of the chest acquired. RADIATION DOSE: NA LIMITATIONS: none FINDINGS: LUNGS AND PLEURA: No opacities, masses or pneumothorax. No pleural effusion. MEDIASTINUM AND HILAR STRUCTURES: No masses or contour abnormalities. HEART AND VASCULAR STRUCTURES: Heart normal size. No evidence for failure. BONES: No acute findings. HARDWARE: None in the chest. OTHER: No other significant finding. IMPRESSION: NO ACUTE RADIOGRAPHIC FINDING IN THE CHEST. TECHNICAL DOCUMENTATION: JOB ID: [id number] [employer]- All Rights Reserved Reading location - IP/workstation name: [email or web address]
[2018-04-20 13:32] LABS: ABSOLUTE BASOPHILS # (AUTO) 0.1 10^3/uL (0.0-0.2); ABSOLUTE EOSINOPHILS # (AUTO) 0.7 10^3/uL (0.0-0.6); ABSOLUTE LYMPHOCYTES (AUTO) 2.2 10^3/uL (0.5-4.7); ABSOLUTE MONOCYTES (AUTO) 0.6 10^3/uL (0.1-1.4); ABSOLUTE NEUT (AUTO) 4.7 10^3/uL (1.7-8.2); BASOPHILS % (AUTO) 1.2 % (0-2); EOSINOPHILS % (AUTO) 7.9 % (0-6); HEMATOCRIT 45.2 % (37.9-51.0); HEMOGLOBIN 15.9 g/dL (13.5-17.0); LYMPHOCYTES % (AUTO) 26.8 % (13-45); MEAN CORPUSCULAR HGB CONC 35.1 g/dL (32.0-36.0); MEAN CORPUSCULAR VOLUME 94 fl (80-97); MONOCYTES % (AUTO) 7.1 % (3-13); PLATELET COUNT 224 10^3/uL (150-450); RED BLOOD COUNT 4.81 10^6/uL (4.35-5.55); RED CELL DISTRIBUTION WIDTH 13.4 % (11.5-14.0); TOTAL CELLS COUNTED % (AUTO) 100 %; WHITE BLOOD COUNT 8.3 10^3/uL (4.0-10.5)
[2018-04-20 13:54] LABS: ANION GAP 8 (5-19); BLOOD UREA NITROGEN 9 mg/dL (7-20); CALCIUM 9.2 mg/dL (8.4-10.2); CARBON DIOXIDE 29 mmol/L (22-30); CHLORIDE 105 mmol/L (98-107); GLUCOSE 117 mg/dL (75-110); POTASSIUM 4.3 mmol/L (3.6-5.0); SODIUM 141.6 mmol/L (137-145)
--- NOTE | 2018-04-20 14:08 | RADIOLOGY REPORT (SQ) ---
EXAM DESCRIPTION: U/S RETROPERITON (RENAL/AORTA) COMPLETED DATE/TIME: 04/20/2018 2:00 pm REASON FOR STUDY: L flank pain, hx stones COMPARISON: 15. TECHNIQUE: Dynamic and static grayscale images acquired of the kidneys and bladder and recorded on P ACS. Additional selected color Doppler and spectral images recorded. LIMITATIONS: None. FINDINGS: RIGHT KIDNEY: Normal size. Normal echogenicity. No solid or suspicious masses. No hydronep hrosis. No calcifications. LEFT KIDNEY: Normal size. Normal echogenicity. No solid or suspicious masses. Mild hydronephrosis. No calcifications. BLADDER: Incompletely distended. No masses. OTHER FINDINGS: No other significant finding. IMPRESSION: MILD HYDRONEPHROSIS OF THE LEFT KIDNEY. TECHNICAL DOCUMENTATION: JOB ID: [id number] [employer]- All Rights Reserved Reading location - IP/workstation name: [email or web address]
[2018-04-20] MEDS ORDERED: TAMSULOSIN HCL 0.4 MG CAP.SR.24H PO ONE (14:28)
[2018-04-20] MEDS ORDERED: CEFTRIAXONE INJ 1000 MG VIAL IM ONE (14:29)
[2018-04-20] MEDS ORDERED: LIDOCAINE 1% INJ-PF (10 MG/ML) 30 ML SDV INJ ONE (14:29)
[2018-04-20] MEDS ORDERED: CIPROFLOXACIN HCL 500 MG TABLET PO ONE (14:30)
--- NOTE | 2018-04-20 15:52 | RADIOLOGY REPORT (SQ) ---
EXAM DESCRIPTION: KUB/ABDOMEN (SINGLE VIEW) COMPLETED DATE/TIME: 04/20/2018 3:43 pm REASON FOR STUDY: L flank pain, hydro, ?calcification COMPARISON: 10/23/2017. NUMBER OF VIEWS: One view. TECHNIQUE: AP supine digital radiograph of the abdomen. LIMITATIONS: None. FINDINGS: CALCIFICATIONS: RIGHT KIDNEY: Tiny calculus in the lower pole. RIGHT URETER: No calcifications in the expected location of the ureter. LEFT KIDNEY: None. LEFT URETER: 3 mm calcification on the left side of the L4 vertebra. BLADDER: No suspicious calcifications in the pelvis. Incidental calcified phleboliths. BOWEL GAS PATTERN AND SOFT TISSUES: Normal bowel gas pattern. No masses or organomegaly. BONES: No acute fracture. No worrisome bone lesions. OTHER: None. IMPRESSION: SMALL CALCIFICATION ON THE LEFT SIDE OF THE L4 VERTEBRA, POSSIBLY A CALCULUS IN THE LEFT URETER. TINY CALCULUS IN THE LOWER POLE OF THE RIGHT KIDNEY. TECHNICAL DOCUMENTATION: JOB ID: [id number] [employer]- All Rights Reserved Reading location - IP/workstation name: [email or web address]
[2018-04-20 16:33] VITALS: BP 144/98
== END 2018-04-20 16:33 | disposition home or self-care (01) ==
LOC: ER 11:39
DX: J11.1 Influenza due to unidentified influenza virus with other respiratory manifestations (principal); N20.1 Calculus of ureter; R11.2 Nausea with vomiting, unspecified; R50.9 Fever, unspecified; M79.10 Myalgia, unspecified site; R51 Headache; R05 Cough; R09.81 Nasal congestion; R53.1 Weakness; F17.200 Nicotine dependence, unspecified, uncomplicated; I10 Essential (primary) hypertension; E11.9 Type 2 diabetes mellitus without complications
CPT/HCPCS: 99284; 96372; 36415; 87070; 87086; 87880; 85025; 87088; 80048; 81001; 71046; 74018; 76770; S0119; J3490; J0696

== ENCOUNTER 2018-10-14 12:14 | Inpatient (IN) | payer SELFPAY ==
[~2018-10-14 12:14] MED LIST: GLYCOPYRROLATE 1 MG/5 ML VIAL ONE; NEOSTIGMINE METHYLSULFATE 10 MG/10 ML VIAL ONE; ROCURONIUM BROMIDE INJ 50 MG/5 ML VIAL IV ONE; SUCCINYLCHOLINE CHLORIDE INJ 200 MG/10 ML VIAL ONE
[2018-10-14] MEDS ORDERED: ONDANSETRON 4 MG TAB.RAPDIS PO ONE (13:07)
--- NOTE | 2018-10-14 13:13 | ER Document Report ---
ED Medical Screen (RME) - General Chief Complaint: Abdominal Pain Stated Complaint: ABDOMINAL PAIN Time Seen by Provider: 10/14/18 12:58 Primary Care Provider: FORREST HAMPTON DO [Primary Care Provider] - Follow up as needed Mode of Arrival: Ambulatory Information source: Patient TRAVEL OUTSIDE OF THE [place] IN LAST 30 DAYS: No - HPI Notes: 10/14/18 13:09 38-year-old male presents to the ED for evaluation of severe abdominal pain, hematuria with nausea and vomiting as well as right testicular pain that started yesterday. Patient reports that he was in the ED yesterday, left without being seen but does not have a recollection of this time since he left the ER. ROS: Other than noted above, the 12 point review of systems was reviewed with the patient and were negative, all pertinent findings are included in the HPI. PHYSICAL EXAMINATION: Vital signs reviewed. GENERAL: Well-appearing, well-nourished and in mild distress. HEAD: Atraumatic, normocephalic. NECK: Normal range of motion CV: Heart regular rate and rhythm LUNGS: No respiratory distress ABD: generalized abd pain, guarding Musculoskeletal: Normal range of motion NEUROLOGICAL: Normal speech PSYCH: Normal mood, normal affect. Evaluate MDM: Patient seen and examined for rapid initial assessment. Vital signs reviewed. A comprehensive ED assessment and evaluation of the patient, analysis of test results and completion of the medical decision making process will be conducted by additional ED providers. *Note is created using voice recognition software and may contain spelling, syntax or grammatical errors. - Related Data Allergies/Adverse Reactions: imipramine [Imipramine] Allergy (Severe, Verified 10/14/18 12:17) Hives Past Medical History - Social History Family history: Reviewed & Not Pertinent - Past Medical History Cardiac Medical History: Reports: Hx Hypertension Denies: Hx Coronary Artery Disease, Hx Heart Attack Pulmonary Medical History: Reports: Hx Asthma - bronchial has inhalers, Hx Bronchitis, Hx Pneumonia - hx of Denies: Hx COPD Neurological Medical History: Reports: Hx Seizures - petit mal as child 1985 no current meds. Denies: Hx Cerebrovascular Accident Endocrine Medical History: Reports: Hx Diabetes Mellitus Type 2 Renal/ Medical History: Reports: Hx Kidney Stones. Denies: Hx Peritoneal Dialysis Musculoskeltal Medical History: Denies Hx Arthritis Psychiatric Medical History: Reports: Hx Attention Deficit Hyperactivity Disorder, Hx Depression Traumatic Medical History: Reports: Hx Spine Fracture Past Surgical History: Reports: Hx Kidney (Renal Surgery) - lithotripsy - Immunizations Hx Diphtheria, Pertussis, Tetanus Vaccination: No Physical Exam - Vital signs Vitals: Temp Pulse Resp BP Pulse Ox 98.1 F 102 H 24 H 148/110 H 98 10/14/18 12:20 10/14/18 12:20 10/14/18 12:20 10/14/18 12:20 10/14/18 12:20 Course - Vital Signs Vital signs: Temp Pulse Resp BP Pulse Ox 98.1 F 102 H 24 H 148/110 H 98 10/14/18 12:20 10/14/18 12:20 10/14/18 12:20 10/14/18 12:20 10/14/18 12:20 Doctor's Discharge - Discharge Referrals: FORREST HAMPTON DO [Primary Care Provider] - Follow up as needed
[2018-10-14 14:01] LABS: APPEARANCE,URINE CLEAR; BILIRUBIN,URINE NEGATIVE (NEGATIVE); COLOR,URINE AMBER; GLUCOSE, URINE NEGATIVE (NEGATIVE); KETONES,URINE TRACE mg/dL (NEGATIVE); LEUKOCYTE ESTERASE,URINE NEGATIVE (NEGATIVE); NITRITE,URINE NEGATIVE (NEGATIVE); PROTEIN,URINE NEGATIVE (NEGATIVE); URINE SPECIFIC GRAVITY 1.023
[2018-10-14] MEDS ORDERED: MORPHINE SULFATE 10 MG/ML INJ IV ONE (14:38)
[2018-10-14 14:43] LABS: HEMATOCRIT 51.1 % (37.9-51.0); HEMOGLOBIN 17.7 g/dL (13.5-17.0); MEAN CORPUSCULAR HEMOGLOBIN 31.4 pg (27.0-33.4); MEAN CORPUSCULAR HGB CONC 34.6 g/dL (32.0-36.0); MEAN CORPUSCULAR VOLUME 91 fl (80-97); PLATELET COUNT 262 10^3/uL (150-450); RED BLOOD COUNT 5.62 10^6/uL (4.35-5.55); RED CELL DISTRIBUTION WIDTH 12.9 % (11.5-14.0); WHITE BLOOD COUNT 17.8 10^3/uL (4.0-10.5)
[2018-10-14 14:45] LABS: ABSOLUTE LYMPHOCYTES# (MANUAL) 1.1 10^3/uL (0.5-4.7); ABSOLUTE MONOCYTES # (MANUAL) 1.6 10^3/uL (0.1-1.4); BAND NEUTROPHILS % (MANUAL) 1 % (3-5); BASOPHILS % (MANUAL) 0 % (0-2); EOSINOPHILS % (MANUAL) 0 % (0-6); LYMPHOCYTES % (MANUAL) 4 % (13-45); MONOCYTES % (MANUAL) 9 % (3-13); SEGMENTED NEUTROPHILS % (MAN) 84 % (42-78); TOTAL CELLS COUNTED 100
[2018-10-14 14:46] LABS: PLATELET COMMENT ADEQUATE; PLATELET LARGE PRESENT; RBC MORPHOLOGY COMMENT NORMO-CYTIC/CHROMIC
--- NOTE | 2018-10-14 15:09 | ER Document Report ---
ED GI/ - General Chief Complaint: Abdominal Pain Stated Complaint: ABDOMINAL PAIN Time Seen by Provider: 10/14/18 12:58 Primary Care Provider: FORREST HAMPTON DO [Primary Care Provider] - Follow up as needed Mode of Arrival: Ambulatory Information source: Patient Notes: Patient is a 38-year-old male presented to the emergency department with 3-day history of right-sided abdominal pain, right testicular pain, dysuria, nausea, vomiting and diarrhea. Patient denies any fevers. Patient does report history of kidney stones, states this feels different than that. Patient denies any alleviating or exacerbating factors. TRAVEL OUTSIDE OF THE [place] IN LAST 30 DAYS: No - Related Data Allergies/Adverse Reactions: imipramine [Imipramine] Allergy (Severe, Verified 10/14/18 12:17) Hives Past Medical History - General Information source: Patient - Social History Smoking Status: Current Some Day Smoker Frequency of alcohol use: Social - Few beers/week Drug Abuse: Cocaine - IV and inhalation, Marijuana Family History: Reviewed & Not Pertinent Patient has suicidal ideation: No Patient has homicidal ideation: No - Past Medical History Cardiac Medical History: Reports: Hx Hypertension Denies: Hx Coronary Artery Disease, Hx Heart Attack Pulmonary Medical History: Reports: Hx Asthma - bronchial has inhalers, Hx Bronchitis, Hx Pneumonia - hx of Denies: Hx COPD Neurological Medical History: Reports: Hx Seizures - petit mal as child 1985 no current meds. Denies: Hx Cerebrovascular Accident Endocrine Medical History: Reports: Hx Diabetes Mellitus Type 2 Renal/ Medical History: Reports: Hx Kidney Stones. Denies: Hx Peritoneal Dialysis Musculoskeletal Medical History: Denies Hx Arthritis Psychiatric Medical History: Reports: Hx Attention Deficit Hyperactivity D isorder, Hx Depression Traumatic Medical History: Reports: Hx Spine Fracture Past Surgical History: Reports: Hx Kidney (Renal Surgery) - lithotripsy - Immunizations Hx Diphtheria, Pertussis, Tetanus Vaccination: No Review of Systems - Review of Systems Constitutional: Chills EENT: No symptoms reported Cardiovascular: No symptoms reported Respiratory: No symptoms reported Gastrointestinal: Abdominal pain, Diarrhea, Nausea, Vomiting Genitourinary: Flank pain Male Genitourinary: Testicular pain - Right Musculoskeletal: No symptoms reported Skin: No symptoms reported Hematologic/Lymphatic: No symptoms reported Neurological/Psychological: No symptoms reported Physical Exam - Vital signs Vitals: Temp Pulse Resp BP Pulse Ox 98.1 F 102 H 24 H 148/110 H 98 10/14/18 12:20 10/14/18 12:20 10/14/18 12:20 10/14/18 12:20 10/14/18 12:20 - Notes Notes: PHYSICAL EXAMINATION: GENERAL: Pale, ill-appearing tenderness to palpation to the right lower quadrant. HEAD: Atraumatic, normocephalic. EYES: Pupils equal round and reactive to light, extraocular movements intact, sclera anicteric. ENT: Nares patent, oropharynx clear without exudates. Moist mucous membranes. NECK: Normal range of motion, supple without lymphadenopathy LUNGS: Breath sounds clear to auscultation bilaterally and equal. No wheezes rales or rhonchi. HEART: Regular rate and rhythm without murmurs ABDOMEN: Soft, nondistended abdomen. Tenderness to palpation to the right lower quadrant with guarding. No masses appreciated. Musculoskeletal: Normal range of motion, no pitting or edema. No cyanosis. NEUROLOGICAL: Cranial nerves grossly intact. Normal speech. Normal sensory, motor exams PSYCH: Normal mood, normal affect. SKIN: Warm, Dry, normal turgor, no rashes or lesions noted. Course - Re-evaluation Re-evalutation: 10/14/18 15:33 Patient has stress return from radiology. Patient has a leukocytosis of 17,000, nursing to have rechecked his vital signs he is now febrile. Patient remains in position complaining of right lower quadrant pain. Patient has made multiple requests to have something to drink, we have reiterated multiple times he is to remain n.p.o. His chemistry unfortunately hemolyzed, nursing staff is attempting to redraw this at the time. CT abdomen pelvis was obtained, results are pending. 10/14/18 15:[address] Samuel after receiving call from radiologist regarding free air in the abdomen. Nursing staff recheck patient's vitals as well and patient has now spiked a fever. Dr. Samuel will come to the bedside to evaluate the patient. Patient updated on plan of care at this time, reminded of n.p.o. status. Patient reports last oral intake was at approximately 2 AM. Labs as recorded below, radiology as recorded below, new labs were just drawn as initial chemistry hemolyzed, multiple attempts have been made to obtain the labs however unfortunately patient is a hard stick. Laboratory 10/14/18 10/14/18 10/14/18 13:20 13:20 13:20 WBC 17.8 H RBC 5.62 H Hgb 17.7 H Hct 51.1 H MCV 91 MCH 31.4 MCHC 34.6 RDW 12.9 Plt Count 262 Total Counted 100 Seg Neutrophils % Not Reportable Seg Neuts % (Manual) 84 H Band Neutrophils % 1 L Lymphocytes % Not Reportable Lymphocytes % (Manual) 4 L Atypical Lymphs % 2 Monocytes % Not Reportable Monocytes % (Manual) 9 Eosinophils % Not Reportable Eosinophils % (Manual) 0 Basophils % Not Reportable Basophils % (Manual) 0 Absolute Neutrophils Not Reportable Abs Neuts (Manual) 15.1 H Absolute Lymphocytes Not Reportable Abs Lymphs (Manual) 1.1 Absolute Monocytes Not Reportable Abs Monocytes (Manual) 1.6 H Absolute Eosinophils Not Reportable Absolute Eos (Manual) 0.0 Absolute Basophils Not Reportable Abs Basophils (Manual) 0.0 Large Platelets PRESENT Platelet Comment ADEQUATE RBC Morph Comment NORMO-CYTIC/CHROMIC Sodium Cancelled Potassium Cancelled Chloride Cancelled Carbon Dioxide Cancelled Anion Gap Cancelled BUN Cancelled Creatinine Cancelled Est GFR ( Amer) Cancelled Est GFR (Non-Af Amer) Cancelled Glucose Cancelled Calcium Cancelled Total Bilirubin Cancelled Direct Bilirubin Cancelled Neonat Total Bilirubin Cancelled Neonat Direct Bilirubin Cancelled Neonat Indirect Bili Cancelled AST Cancelled ALT Cancelled Alkaline Phosphatase Cancelled Total Protein Cancelled Albumin Cancelled Lipase Cancelled Urine Color JAYLEEN Urine Appearance CLEAR Urine pH 5.0 Ur Specific [place] 1.023 Urine Protein NEGATIVE Urine Glucose (UA) NEGATIVE Urine Ketones TRACE H Urine Blood SMALL H Urine Nitrite NEGATIVE Urine Bilirubin NEGATIVE Urine Urobilinogen 4.0 H Ur Leukocyte Esterase NEGATIVE Urine WBC (Auto) 3 Urine RBC (Auto) 2 Squamous Epi Cells Auto <1 Urine Mucus (Auto) RARE Urine Ascorbic Acid NEGATIVE Abdomen/Pelvis CT 10/14/18 13:03 IMPRESSION: Pneumoperitoneum consistent with ruptured viscus. Free fluid in the right lateral gutter mesenteric inflammation in the pelvis along with small pockets of loculated extraluminal air. Scrotum Ultrasound 10/14/18 13:08 IMPRESSION: Small left-sided varicocele. No other significant findings. 10/14/18 16:20 Patient accepted for admission by Dr. Samuel, patient will be taken straight to the OR from the emergency department. - Vital Signs Vital signs: Temp Pulse Resp BP Pulse Ox 101.0 F H 91 22 H 124/67 95 10/14/18 15:30 10/14/18 15:30 10/14/18 15:30 10/14/18 15:30 10/14/18 15:30 - Laboratory Result Diagrams: 10/14/18 13:20 10/14/18 13:20 Laboratory results interpreted by me: 10/14/18 10/14/18 13:20 13:20 WBC 17.8 H RBC 5.62 H Hgb 17.7 H Hct 51.1 H Seg Neuts % (Manual) 84 H Band Neutrophils % 1 L Lymphocytes % (Manual) 4 L Abs Neuts (Manual) 15.1 H Abs Monocytes (Manual) 1.6 H Urine Ketones TRACE H Urine Blood SMALL H Urine Urobilinogen 4.0 H Discharge - Discharge Clinical Impression: Perforated viscus Leukocytosis Qualifiers: Leukocytosis type: unspecified Qualified Code(s): D72.829 - Elevated white blood cell count, unspecified Abdominal pain Qualifiers: Abdominal location: unspecified location Qualified Code(s): R10.9 - Unspecified abdominal pain Fever Qualifiers: Fever type: unspecified Qualified Code(s): R50.9 - Fever, unspecified Condition: Stable Disposition: ADMITTED INPATIENT Admitting Provider: Surgicalist Unit Admitted: Surgical Floor Referrals: FORREST HAMPTON DO [Primary Care Provider] - Follow up as needed
[2018-10-14] MEDS ORDERED: NORMAL SALINE 1000 ML 1,000 ML IV ONE ×2 (15:14→16:50)
[2018-10-14] MEDS ORDERED: METOCLOPRAMIDE HCL INJ/PF 10 MG/2 ML SDV IV ONE (15:25)
[2018-10-14] MEDS ORDERED: HYDROMORPHONE HCL INJ/PF 2 MG/ML AMPULE IV ONE (15:25)
--- NOTE | 2018-10-14 15:25 | RADIOLOGY REPORT (SQ) ---
EXAM DESCRIPTION: U/S SCROTUM W/DOPPLER COMPLETED DATE/TIME: 10/14/2018 3:15 pm REASON FOR STUDY: right testicular pain, sudden onset COMPARISON: 02/03/2017 TECHNIQUE: Static and realtime vazquez scale imaging of the scrotum and testes. Selected color Doppler and spectral images recorded to document blood flow. LIMITATIONS: None. FINDINGS: RIGHT: TESTICLE: Normal size. Normal echotexture. Normal blood flow. No mass. EPIDIDYMIS: Normal. HYDROCELE OR VARICOCELE: No. HERNIA OR EXTRA-TESTICULAR MASS: No. OTHER: No other significant finding. LEFT: TESTICLE: Normal size. Normal echotexture. Normal blood flow. No mass. EPIDIDYMIS: Normal. HYDROCELE OR VARICOCELE: There is a small left-sided varicocele. HERNIA OR EXTRA-TESTICULAR MASS: No. OTHER: No other significant finding. IMPRESSION: Small left-sided varicocele. No other significant findings. TECHNICAL DOCUMENTATION: JOB ID: [id number] [employer]- All Rights Reserved Reading location - IP/workstation name: [email or web address]
--- NOTE | 2018-10-14 15:44 | RADIOLOGY REPORT (SQ) ---
EXAM DESCRIPTION: CT ABD/PELVIS WITH IV ONLY COMPLETED DATE/TIME: 10/14/2018 3:27 pm REASON FOR STUDY: severe abd COMPARISON: 01/26/2018 TECHNIQUE: CT scan of the abdomen and pelvis performed using helical scanning technique with dynamic intravenous contrast injection. No oral contrast. Images reviewed with lung, soft tissue, and bone windows. Reconstructed coronal and sagittal MPR images reviewed. Delayed images for evaluation of the urinary system also acquired. All images stored on PACS. All CT scanners at this facility use dose modulation, iterative reconstruction, and/or weight based d osing when appropriate to reduce radiation dose to as low as reasonably achievable (ALARA). [facility]: Dose Right [facility]: CareDose [facility]: Dose Right [facility]: Teradose 4D [facility]: [employer] CONTRAST TYPE AND DOSE: contrast/concentration: Isovue 350.00 mg/ml; Total Contrast Delivered: 90.0 ml; Total Saline Delivered: 70.0 ml RENAL FUNCTION: None required. The patient is less than 50 years old. RADIATION DOSE: CT Rad equipment meets quality standard of care and radiation dose reduction techniq ues were employed. CTDIvol: 10.9 - 14.8 mGy. DLP: 1578 mGy-cm.. LIMITATIONS: None. FINDINGS: LOWER CHEST: No significant findings. No nodules or infiltrates. LIVER: Large amount of free air under the diaphragm. No focal hepatic lesions. SPLEEN: Normal size. No focal lesions. PANCREAS: No masses. No significant calcifications. No adjacent inflammation or peripancreatic fluid collections. Pancreatic duct not dilated. GALLBLADDER: No identified stones by CT criteria. No inflammatory changes to suggest cholecystitis. ADRENAL GLANDS: No significant masses or asymmetry. RIGHT KIDNEY AND URETER: No solid masses. No significant calcifications. No hydronephrosis or hyd roureter. LEFT KIDNEY AND URETER: No solid masses. No significant calcifications. No hydronephrosis or hydr oureter. AORTA AND VESSELS: No aneurysm. No dissection. Renal arteries, SMA, celiac without stenosis. RETROPERITONEUM: No retroperitoneal adenopathy, hemorrhage or masses. BOWEL AND PERITONEAL CAVITY: Pneumoperitoneum. Free fluid in the right lateral gutter. Mild inflamm atory changes throughout the pelvis. Small pockets of air in the pelvis as well. No focal abscess i s identified. APPENDIX: Normal. PELVIS: As above. ABDOMINAL WALL: No masses. No hernias. BONES: No significant or acute findings. OTHER: No other significant finding. IMPRESSION: Pneumoperitoneum consistent with ruptured viscus. Free fluid in the right lateral gutte r mesenteric inflammation in the pelvis along with small pockets of loculated extraluminal air. COMMENT: This report was called to RIP MCFARLAND at15:37 on 10/14/2018. TECHNICAL DOCUMENTATION: JOB ID: [id number] Quality ID # [id number]: Final reports with documentation of one or more dose reduction techniques (e.g., Au tomated exposure control, adjustment of the mA and/or kV according to patient size, use of iterative reconstruction technique) 2010 [employer]- All Rights Reserved Reading location - IP/workstation name: [email or web address]
[2018-10-14] MEDS ORDERED: ERTAPENEM SODIUM INJ 1 GM VIAL IV ONE (15:46)
[2018-10-14] MEDS ORDERED: ACETAMINOPHEN 1,000 MG/100 ML RTUPB IV ONE ×2 (16:00→20:40)
[2018-10-14 16:35] LABS: VENOUS BLOOD BASE EXCESS 0.5 mmol/L; VENOUS BLOOD HCO3 24.4 mmol/L (20-32); VENOUS BLOOD PCO2 37.4 mmHg (35-63); VENOUS BLOOD PH 7.43 (7.30-7.42)
--- NOTE | 2018-10-14 16:40 | PDOC H&P ---
History of Present Illness Admission Date/PCP: FORREST HAMPTON DO 10/14/18 History of Present Illness: NAI AUSTIN is a 38 year old male with three days of abdominal pain hx cocaine and etoh abuse Past Medical History Cardiac Medical History: Reports: Hypertension Denies: Coronary Artery Disease, Myocardial Infarction Pulmonary Medical History: Reports: Asthma - bronchial has inhalers, Bronchitis, Pneumonia - hx of Denies: Chronic Obstructive Pulmonary Disease (COPD) Neurological Medical History: Reports: Seizures - petit mal as child 1985 no current meds Endocrine Medical History: Reports: Diabetes Mellitus Type 2 Musculoskeltal Medical History: Denies: Arthritis Psychiatric Medical History: Reports: Attention Deficit Hyperactivity Disorder, Depression Hematology: Denies: Anemia Social History Smoking Status: Current Some Day Smoker Frequency of Alcohol Use: Heavy Hx Recreational Drug Use: No Drugs: Cocaine Hx Prescription Drug Abuse: No Family History Family History: Reviewed & Not Pertinent Parental Family History Reviewed: No Children Family History Reviewed: NA Sibling(s) Family History Reviewed.: NA Medication/Allergy Home Medications: Albuterol Sulfate [Proair HFA] 1 - 2 puff IH Q4 PRN 04/04/15 Metformin HCl [Glucophage] 500 mg PO DAILY 04/04/15 Omeprazole 40 mg PO DAILY 05/29/15 Sertraline HCl 100 mg PO DAILY 05/29/15 Temazepam 30 mg PO DAILY 05/29/15 Cephalexin Monohydrate [Keflex 500 mg Capsule] 500 mg PO Q6H 14 Days capsule 02/04/17 Morphine Sulfate [Morphine Ir 15 mg Tablet] 15 mg PO Q4HP PRN #6 tablet 02/04/17 Amox Tr/Potassium Clavulanate [Augmentin 875-125 Tablet] 1 tab PO BID 7 Days tablet 02/28/17 Oxycodone HCl/Acetaminophen [Percocet 5-325 mg Tablet] 1 tab PO ASDIR PRN #10 tablet 02/28/17 Ketorolac Tromethamine [Toradol 10 mg Tablet] 10 mg PO Q8H PRN 5 Days #15 tablet 10/23/17 Ondansetron [Zofran Odt 4 mg Tablet] 1 - 2 tab PO Q4H PRN #15 tab.rapdis 10/23/17 Oxycodone HCl/Acetaminophen [Percocet 5-325 mg Tablet] 1 - 2 tab PO Q8H PRN 5 Days #15 tablet 10/23/17 Tamsulosin HCl [Flomax 0.4 mg Cap.sr] 0.4 mg PO DAILY #7 cap.sr.24h 10/23/17 Cephalexin Monohydrate [Keflex 500 mg Capsule] 500 mg PO BID 5 Days #14 capsule 01/26/18 Hydrocodone/Acetaminophen [[place] 5-325 mg Tablet] 1 tab PO Q4 #10 tablet 01/26/18 Ondansetron [Zofran Odt 4 mg Tablet] 1 tab PO Q4H PRN #15 tab.rapdis 01/26/18 Tamsulosin HCl [Flomax 0.4 mg Cap.sr] 0.4 mg PO DAILY #7 cap.sr.24h 01/26/18 Oseltamivir Phosphate [Tamiflu 75 mg Capsule] 75 mg PO BID #10 capsule 04/15/18 Ciprofloxacin HCl [Cipro 500 mg Tablet] 500 mg PO BID #20 tablet 04/20/18 Naproxen [Naprosyn 250 Nmg Tablet] 1 tab PO BID #14 tablet 04/20/18 Promethazine HCl [Phenergan 25 mg Tablet] 25 mg PO Q6H PRN #10 tablet 04/20/18 Tamsulosin HCl [Flomax 0.4 mg Cap.sr] 0.4 mg PO DAILY #7 cap.sr.24h 04/20/18 Allergies/Adverse Reactions: imipramine [Imipramine] Allergy (Severe, Verified 10/14/18 12:17) Hives Physical Exam Vital Signs: Temp Pulse Resp BP Pulse Ox 101.0 F H 91 22 H 124/67 95 10/14/18 15:30 10/14/18 15:30 10/14/18 15:30 10/14/18 15:30 10/14/18 15:30 Intake & Output 10/13/18 10/14/18 10/15/18 06:59 06:59 06:59 Weight 79 kg General appearance: PRESENT: disheveled, severe distress, thin Head exam: PRESENT: normocephalic Eye exam: PRESENT: EOMI Ear exam: PRESENT: normal external ear exam Mouth exam: PRESENT: dry mucosa Teeth exam: PRESENT: poor dentation Neck exam: PRESENT: full ROM Respiratory exam: PRESENT: clear to auscultation nu Cardiovascular exam: PRESENT: RRR Pulses: PRESENT: +2 pedal pulses bilateral Vascular exam: PRESENT: normal capillary refill GI/Abdominal exam: PRESENT: firm, hypoactive bowel sounds Rectal exam: PRESENT: deferred Extremities exam: PRESENT: full ROM, +2 edema Musculoskeletal exam: PRESENT: full ROM Neurological exam: PRESENT: alert, awake, oriented to person, oriented to place Psychiatric exam: PRESENT: depressed Skin exam: PRESENT: dry Results Laboratory Results: 10/14/18 13:20 10/14/18 13:20 10/14/18 10/14/18 10/14/18 13:20 13:20 13:20 WBC 17.8 H RBC 5.62 H Hgb 17.7 H Hct 51.1 H MCV 91 MCH 31.4 MCHC 34.6 RDW 12.9 Plt Count 262 Seg Neutrophils % Not Reportable Lymphocytes % Not Reportable Monocytes % Not Reportable Eosinophils % Not Reportable Basophils % Not Reportable Absolute Neutrophils Not Reportable Absolute Lymphocytes Not Reportable Absolute Monocytes Not Reportable Absolute Eosinophils Not Reportable Absolute Basophils Not Reportable Sodium Cancelled Potassium Cancelled Chloride Cancelled Carbon Dioxide Cancelled Anion Gap Cancelled BUN Cancelled Creatinine Cancelled Est GFR ( Amer) Cancelled Est GFR (Non-Af Amer) Cancelled Glucose Cancelled Calcium Cancelled Total Bilirubin Cancelled AST Cancelled ALT Cancelled Alkaline Phosphatase Cancelled Total Protein Cancelled Albumin Cancelled Lipase Cancelled Urine Color JAYLEEN Urine Appearance CLEAR Urine pH 5.0 Ur Specific [place] 1.023 Urine Protein NEGATIVE Urine Glucose (UA) NEGATIVE Urine Ketones TRACE H Urine Blood SMALL H Urine Nitrite NEGATIVE Ur Leukocyte Esterase NEGATIVE Urine WBC (Auto) 3 Urine RBC (Auto) 2 Impressions: Abdomen/Pelvis CT 10/14/18 13:03 IMPRESSION: Pneumoperitoneum consistent with ruptured viscus. Free fluid in the right lateral gutter mesenteric inflammation in the pelvis along with small pockets of loculated extraluminal air. Scrotum Ultrasound 10/14/18 13:08 IMPRESSION: Small left-sided varicocele. No other significant findings. Assessment & Plan - Diagnosis (1) Abdominal pain Qualifiers: Abdominal location: unspecified location Qualified Code(s): R10.9 - Unspecified abdominal pain (2) Fever Qualifiers: Fever type: unspecified Qualified Code(s): R50.9 - Fever, unspecified (3) Leukocytosis Qualifiers: Leukocytosis type: unspecified Qualified Code(s): D72.829 - Elevated white blood cell count, unspecified - Plan Summary Plan Summary: 3 days of diffuse abd pain, starting in rlq now free air and fluid on ct exam c/w peritionitis. to OR for diagnostic laparoscopy possible laparotomy
[2018-10-14] MEDS ORDERED: FENTANYL CITRATE INJ/PF 100 MCG/2 ML AMPUL ONE (17:14)
[2018-10-14] MEDS ORDERED: FENTANYL CITRATE INJ/PF 250 MCG/5 ML AMPULE ONE (17:14)
[2018-10-14] MEDS ORDERED: PROPOFOL INJ 200 MG/20 ML VIAL IV ONE (17:15)
[2018-10-14] MEDS ORDERED: MIDAZOLAM 2 MG/2 ML INJ ONE (17:15)
[2018-10-14] MEDS ORDERED: MORPHINE SULFATE 10 MG/ML INJ ONE (17:15)
[2018-10-14] MEDS ORDERED: HYDROMORPHONE HCL INJ/PF 2 MG/ML AMPULE ONE (17:41)
[2018-10-14] MEDS ORDERED: BUPIVACAINE HCL 0.25 % INJ/PF (2.5 MG/1 ML) 30 ML VIAL INJ ONE (18:35)
[2018-10-14] MEDS ORDERED: MEPERIDINE HCL/PF INJ 25 MG/1 ML DISP.SYRIN IV PRN (18:56)
[2018-10-14] MEDS ORDERED: DIPHENHYDRAMINE HCL 50 MG/ML VIAL IV PRN (18:56)
[2018-10-14] MEDS ORDERED: MORPHINE SULFATE 10 MG/ML INJ IV PRN (18:56)
[2018-10-14] MEDS ORDERED: FENTANYL CITRATE INJ/PF 100 MCG/2 ML AMPUL IV PRN ×3 (18:56)
[2018-10-14] MEDS ORDERED: PROMETHAZINE HCL INJ 25 MG/1 ML VIAL IV PRN ×2 (18:56)
[2018-10-14] MEDS ORDERED: ONDANSETRON HCL INJ/PF 4 MG/2 ML SDV IV PRN (18:56)
--- NOTE | 2018-10-14 19:56 | Operative Report ---
Nonrecallable Operative Report DATE OF SURGERY: 10/14/18 PREOPERATIVE DIAGNOSIS: perforated viscus POSTOPERATIVE DIAGNOSIS: perforated diverticulitis OPERATION: diagnostic laparoscopy, exploratory laparotomy,sigmoid colectomy, appendectomy and delarosa's procedure SURGEON: RAFY FELIX ANESTHESIA: GA TISSUE REMOVED OR ALTERED: sigmoid colon, appendix COMPLICATIONS: none ESTIMATED BLOOD LOSS: 75cc INTRAOPERATIVE FINDINGS: perforated sigmoid colon PROCEDURE: see dictation
[2018-10-14] MEDS ORDERED: DEXTROSE 40% GEL 15 GM TUBE PO PRN ×2 (19:57)
[2018-10-14] MEDS ORDERED: DEXTROSE 50%-WATER 25 GM/50 ML DISP.SYRIN IV PRN ×2 (19:57)
[2018-10-14] MEDS ORDERED: GLUCAGON,HUMAN RECOMB 1 MG INJ SUBCUT PRN (19:57)
[2018-10-14] MEDS ORDERED: PHARMACY COMMUNICATION ORDER MC NR (20:00)
[2018-10-14] MEDS: FENTANYL CITRATE INJ/PF 100 MCG/2 ML AMPUL ONE ×2 (20:05→20:10)
[2018-10-14] MEDS ORDERED: KETOROLAC TROMETHAMINE INJ/PF 30 MG/1 ML SDV ONE (20:39)
[2018-10-14 20:54] LABS: ALANINE AMINOTRANSFERASE 89 U/L (21-72); ALBUMIN 3.2 g/dL (3.5-5.0); ALKALINE PHOSPHATASE 72 U/L (38-126); ANION GAP 11 (5-19); ASPARTATE AMINO TRANSFERASE 73 U/L (17-59); BILIRUBIN,DIRECT 0.7 mg/dL (0.0-0.4); BILIRUBIN,TOTAL 1.7 mg/dL (0.2-1.3); BLOOD UREA NITROGEN 13 mg/dL (7-20); CALCIUM 8.6 mg/dL (8.4-10.2); CARBON DIOXIDE 21 mmol/L (22-30); CHLORIDE 105 mmol/L (98-107); GLUCOSE 212 mg/dL (75-110); POTASSIUM 4.6 mmol/L (3.6-5.0); TOTAL PROTEIN 6.1 g/dL (6.3-8.2)
[2018-10-14] MEDS: HEPARIN SOD (PORCINE) 5,000 UNIT/ML 1 ML VIAL SUBCUT SCH (22:27)
[2018-10-14] MEDS: FAMOTIDINE INJ/PF 20 MG/2 ML SDV IV SCH (22:33)
[2018-10-14] MEDS: METRONIDAZOLE 500 MG/NS RTU 500 MG/100 ML RTUPB IV SCH (22:33)
[2018-10-14] MEDS: PIPERACILLIN SODIUM/TAZOBACTAM 3.375 GM in NORMAL SALINE 100 ML IV SCH (23:47)
[2018-10-15] MEDS: MORPHINE SULFATE 10 MG/ML INJ IV PRN ×7 (00:01→20:29)
[2018-10-15] MEDS: POTASSI CL 20 MEQ/D5-1/2NS 1L 1,000 ML IV PRN ×3 (00:26→17:15)
[2018-10-15] MEDS: HEPARIN SOD (PORCINE) 5,000 UNIT/ML 1 ML VIAL SUBCUT SCH ×3 (05:19→21:50)
[2018-10-15] MEDS: METRONIDAZOLE 500 MG/NS RTU 500 MG/100 ML RTUPB IV SCH ×3 (05:19→21:49)
[2018-10-15 05:36] LABS: ABSOLUTE LYMPHOCYTES (AUTO) 1.6 10^3/uL (0.5-4.7); ABSOLUTE MONOCYTES (AUTO) 1.1 10^3/uL (0.1-1.4); ABSOLUTE NEUT (AUTO) 14.9 10^3/uL (1.7-8.2); BASOPHILS % (AUTO) 0.1 % (0-2); HEMATOCRIT 39.6 % (37.9-51.0); LYMPHOCYTES % (AUTO) 9.1 % (13-45); MEAN CORPUSCULAR HEMOGLOBIN 31.2 pg (27.0-33.4); MEAN CORPUSCULAR VOLUME 92 fl (80-97); MONOCYTES % (AUTO) 6.4 % (3-13); PLATELET COUNT 179 10^3/uL (150-450); RED BLOOD COUNT 4.31 10^6/uL (4.35-5.55); RED CELL DISTRIBUTION WIDTH 12.7 % (11.5-14.0); SEGMENTED NEUTROPHILS % (AUTO) 84.4 % (42-78); TOTAL CELLS COUNTED % (AUTO) 100 %; WHITE BLOOD COUNT 17.7 10^3/uL (4.0-10.5)
[2018-10-15 05:44] LABS: ANION GAP 7 (5-19); BLOOD UREA NITROGEN 15 mg/dL (7-20); CALCIUM 8.6 mg/dL (8.4-10.2); CARBON DIOXIDE 25 mmol/L (22-30); CHLORIDE 103 mmol/L (98-107); GLUCOSE 147 mg/dL (75-110); POTASSIUM 4.8 mmol/L (3.6-5.0)
[2018-10-15 05:59] LABS: HEMOGLOBIN 13.5 g/dL (13.5-17.0)
[2018-10-15] MEDS: PIPERACILLIN SODIUM/TAZOBACTAM 3.375 GM in NORMAL SALINE 100 ML IV SCH ×4 (06:12→23:13)
--- NOTE | 2018-10-15 08:28 | RADIOLOGY REPORT (SQ) ---
EXAM DESCRIPTION: KUB/ABDOMEN (SINGLE VIEW) COMPLETED DATE/TIME: 10/14/2018 9:04 pm REASON FOR STUDY: Check Placement of NG Tube COMPARISON: CT abdomen pelvis 10/14/2018 Scrotal ultrasound 10/14/2018 KUB 04/20/2018 NUMBER OF VIEWS: One view. TECHNIQUE: Supine radiographic image of the abdomen acquired. LIMITATIONS: None. FINDINGS: BOWEL GAS PATTERN: Grossly nonobstructive bowel gas pattern with air in nondistended colon . Nasogastric tube decompresses the stomach. No dilated small bowel loops. CALCIFICATIONS: Multiple right-sided intrarenal nonobstructive kidney stones are unchanged from prior CT exam. SOFT TISSUES: No gross mass or suggestion of organomegaly. HARDWARE: Nasogastric tip and side port in the stomach. Romero catheter in the bladder. Left lower q uadrant colostomy. Midline anterior abdominal wall skin jalyn. BONES: No acute fracture. No worrisome bone lesions. OTHER: No other significant finding. IMPRESSION: Postoperative appearance. Grossly nonobstructive bowel gas pattern. Nasogastric tube t ip and side port in the stomach. TECHNICAL DOCUMENTATION: JOB ID: [id number] [employer]- All Rights Reserved Reading location - IP/workstation name: [email or web address]
--- NOTE | 2018-10-15 09:31 | PDOC PROGRESS REPORT ---
Subjective Progress Note for:: 10/15/18 Subjective:: Thirsty. Hungry. Pain medication not lasting sufficiently. Reason For Visit: PERFORATED VISCUS Physical Exam Vital Signs: Temp Pulse Resp BP Pulse Ox 97.9 F 78 13 107/67 95 10/15/18 07:33 10/15/18 07:33 10/15/18 07:33 10/15/18 07:33 10/15/18 07:33 Intake & Output 10/14/18 10/15/18 10/16/18 06:59 06:59 06:59 Intake Total 4750 1000 Output Total 960 Balance 3790 1000 Weight 81.3 kg General appearance: PRESENT: no acute distress, cooperative Respiratory exam: PRESENT: clear to auscultation nu Cardiovascular exam: PRESENT: RRR GI/Abdominal exam: PRESENT: other - Soft, nondistended, appropriate tenderness that is diffuse especially at the incision line. Dressings are intact. Ostomy is pink Results Laboratory Results: 10/15/18 04:47 10/15/18 04:47 10/14/18 10/14/18 10/14/18 13:20 13:20 13:20 WBC 17.8 H RBC 5.62 H Hgb 17.7 H Hct 51.1 H MCV 91 MCH 31.4 MCHC 34.6 RDW 12.9 Plt Count 262 Seg Neutrophils % Not Reportable Lymphocytes % Not Reportable Monocytes % Not Reportable Eosinophils % Not Reportable Basophils % Not Reportable Absolute Neutrophils Not Reportable Absolute Lymphocytes Not Reportable Absolute Monocytes Not Reportable Absolute Eosinophils Not Reportable Absolute Basophils Not Reportable VBG pH VBG pCO2 VBG HCO3 VBG Base Excess Sodium Cancelled Potassium Cancelled Chloride Cancelled Carbon Dioxide Cancelled Anion Gap Cancelled BUN Cancelled Creatinine Cancelled Est GFR ( Amer) Cancelled Est GFR (Non-Af Amer) Cancelled Glucose Cancelled Lactic Acid Calcium Cancelled Total Bilirubin Cancelled AST Cancelled ALT Cancelled Alkaline Phosphatase Cancelled Total Protein Cancelled Albumin Cancelled Lipase Cancelled Urine Color JAYLEEN Urine Appearance CLEAR Urine pH 5.0 Ur Specific [place] 1.023 Urine Protein NEGATIVE Urine Glucose (UA) NEGATIVE Urine Ketones TRACE H Urine Blood SMALL H Urine Nitrite NEGATIVE Ur Leukocyte Esterase NEGATIVE Urine WBC (Auto) 3 Urine RBC (Auto) 2 10/14/18 10/14/18 10/14/18 15:45 20:30 20:30 WBC RBC Hgb Hct MCV MCH MCHC RDW Plt Count Seg Neutrophils % Lymphocytes % Monocytes % Eosinophils % Basophils % Absolute Neutrophils Absolute Lymphocytes Absolute Monocytes Absolute Eosinophils Absolute Basophils VBG pH 7.43 H VBG pCO2 37.4 VBG HCO3 24.4 VBG Base Excess 0.5 Sodium 136.7 L Potassium 4.6 Chloride 105 Carbon Dioxide 21 L Anion Gap 11 BUN 13 Creatinine 0.70 Est GFR ( Amer) > 60 Est GFR (Non-Af Amer) > 60 Glucose 212 H Lactic Acid 1.7 Calcium 8.6 Total Bilirubin 1.7 H AST 73 H ALT 89 H Alkaline Phosphatase 72 Total Protein 6.1 L Albumin 3.2 L Lipase 36.4 Urine Color Urine Appearance Urine pH Ur Specific [place] Urine Protein Urine Glucose (UA) Urine Ketones Urine Blood Urine Nitrite Ur Leukocyte Esterase Urine WBC (Auto) Urine RBC (Auto) 10/15/18 10/15/18 04:47 04:47 WBC 17.7 H RBC 4.31 L Hgb 13.5 D Hct 39.6 MCV 92 MCH 31.2 MCHC 34.0 RDW 12.7 Plt Count 179 Seg Neutrophils % 84.4 H Lymphocytes % 9.1 L Monocytes % 6.4 Eosinophils % 0.0 Basophils % 0.1 Absolute Neutrophils 14.9 H Absolute Lymphocytes 1.6 Absolute Monocytes 1.1 Absolute Eosinophils 0.0 Absolute Basophils 0.0 VBG pH VBG pCO2 VBG HCO3 VBG Base Excess Sodium 135.4 L Potassium 4.8 Chloride 103 Carbon Dioxide 25 Anion Gap 7 BUN 15 Creatinine 0.69 Est GFR ( Amer) > 60 Est GFR (Non-Af Amer) > 60 Glucose 147 H Lactic Acid Calcium 8.6 Total Bilirubin AST ALT Alkaline Phosphatase Total Protein Albumin Lipase Urine Color Urine Appearance Urine pH Ur Specific [place] Urine Protein Urine Glucose (UA) Urine Ketones Urine Blood Urine Nitrite Ur Leukocyte Esterase Urine WBC (Auto) Urine RBC (Auto) Impressions: Abdomen/Pelvis CT 10/14/18 13:03 IMPRESSION: Pneumoperitoneum consistent with ruptured viscus. Free fluid in the right lateral gutter mesenteric inflammation in the pelvis along with small pockets of loculated extraluminal air. Scrotum Ultrasound 10/14/18 13:08 IMPRESSION: Small left-sided varicocele. No other significant findings. KUB X-Ray 10/14/18 19:59 IMPRESSION: Postoperative appearance. Grossly nonobstructive bowel gas pattern. Nasogastric tube tip and side port in the stomach. Assessment & Plan - Diagnosis (1) Diverticulitis of colon with perforation Is this a current diagnosis for this admission?: Yes Plan: Status post Lai's procedure. Patient looks good postoperatively. Will attempt to get patient out of bed. Will increase frequency as morphine to allow better control and ambulation. IV fluid bolus. Await bowel function.
[2018-10-15] MEDS: FAMOTIDINE INJ/PF 20 MG/2 ML SDV IV SCH ×2 (09:51→21:50)
[2018-10-15] MEDS ORDERED: NORMAL SALINE 1000 ML 1,000 ML IV ONE (10:00)
--- NOTE | 2018-10-15 11:30 | RADIOLOGY REPORT (SQ) ---
EXAM DESCRIPTION: CHEST SINGLE VIEW COMPLETED DATE/TIME: 10/15/2018 11:16 am REASON FOR STUDY: right sided pain COMPARISON: 04/20/2018 EXAM PARAMETERS: NUMBER OF VIEWS: One view. TECHNIQUE: Single frontal radiographic view of the chest acquired. RADIATION DOSE: NA LIMITATIONS: None. FINDINGS: LUNGS AND PLEURA: No opacities, masses or pneumothorax. No pleural effusion. MEDIASTINUM AND HILAR STRUCTURES: No masses. Contour normal. HEART AND VASCULAR STRUCTURES: Heart normal in size. Normal vasculature. BONES: No acute findings. HARDWARE: NG tube extends to the stomach. OTHER: Cannot entirely exclude minimal air beneath the right hemidiaphragm. IMPRESSION: Cannot entirely exclude a minimal air beneath the right hemidiaphragm. No acute finding s in the chest. TECHNICAL DOCUMENTATION: JOB ID: [id number] [employer]- All Rights Reserved Reading location - IP/workstation name: [email or web address]
[2018-10-15] MEDS: KETOROLAC TROMETHAMINE INJ/PF 30 MG/1 ML SDV IV PRN ×2 (15:28→21:49)
[2018-10-16] MEDS: MORPHINE SULFATE 10 MG/ML INJ IV PRN ×6 (03:45→22:33)
[2018-10-16] MEDS: PIPERACILLIN SODIUM/TAZOBACTAM 3.375 GM in NORMAL SALINE 100 ML IV SCH ×4 (05:01→23:34)
[2018-10-16] MEDS: POTASSI CL 20 MEQ/D5-1/2NS 1L 1,000 ML IV PRN ×2 (05:04→15:50)
[2018-10-16] MEDS: METRONIDAZOLE 500 MG/NS RTU 500 MG/100 ML RTUPB IV SCH ×3 (05:07→21:15)
[2018-10-16] MEDS: HEPARIN SOD (PORCINE) 5,000 UNIT/ML 1 ML VIAL SUBCUT SCH ×3 (05:08→21:15)
[2018-10-16] MEDS: FAMOTIDINE INJ/PF 20 MG/2 ML SDV IV SCH ×2 (09:42→21:16)
--- NOTE | 2018-10-16 09:56 | PDOC PROGRESS REPORT ---
Subjective Progress Note for:: 10/16/18 Reason For Visit: PERFORATED VISCUS Physical Exam Vital Signs: Temp Pulse Resp BP Pulse Ox 99.4 F 81 17 120/86 H 95 10/16/18 07:00 10/16/18 07:00 10/16/18 07:00 10/16/18 07:00 10/16/18 07:00 Intake & Output 10/15/18 10/16/18 10/17/18 06:59 06:59 06:59 Intake Total 4750 4220 Output Total 960 2350 Balance 3790 1870 Weight 81.3 kg 83.6 kg General appearance: PRESENT: no acute distress Head exam: PRESENT: normocephalic Eye exam: PRESENT: EOMI Ear exam: PRESENT: normal external ear exam Mouth exam: PRESENT: moist Neck exam: PRESENT: full ROM Respiratory exam: PRESENT: clear to auscultation nu Cardiovascular exam: PRESENT: RRR Pulses: PRESENT: normal radial pulses, normal femoral pulses GI/Abdominal exam: PRESENT: other - stoma pink abd soft, wound clean Rectal exam: PRESENT: deferred Gentrourinary exam: PRESENT: indwelling catheter Extremities exam: PRESENT: full ROM Musculoskeletal exam: PRESENT: full ROM Neurological exam: PRESENT: alert, awake, oriented to person, oriented to place Skin exam: PRESENT: dry Results Laboratory Results: 10/15/18 04:47 10/15/18 04:47 Impressions: Abdomen/Pelvis CT 10/14/18 13:03 IMPRESSION: Pneumoperitoneum consistent with ruptured viscus. Free fluid in th e right lateral gutter mesenteric inflammation in the pelvis along with small pockets of loculated extraluminal air. Scrotum Ultrasound 10/14/18 13:08 IMPRESSION: Small left-sided varicocele. No other significant findings. KUB X-Ray 10/14/18 19:59 IMPRESSION: Postoperative appearance. Grossly nonobstructive bowel gas pattern. Nasogastric tube tip and side port in the stomach. Chest X-Ray 10/15/18 00:00 IMPRESSION: Cannot entirely exclude a minimal air beneath the right hemidiaphragm. No acute findings in the chest. Assessment & Plan - Diagnosis (1) Abdominal pain Qualifiers: Abdominal location: unspecified location Qualified Code(s): R10.9 - Unspecified abdominal pain Is this a current diagnosis for this admission?: Yes (2) Fever Qualifiers: Fever type: unspecified Qualified Code(s): R50.9 - Fever, unspecified Is this a current diagnosis for this admission?: Yes (3) Leukocytosis Qualifiers: Leukocytosis type: unspecified Qualified Code(s): D72.829 - Elevated white blood cell count, unspecified Is this a current diagnosis for this admission?: Yes - Plan Summary Plan Summary: pain better still no op via stoma will dc olivares out of bed
[2018-10-16 10:45] LABS: ABSOLUTE BASOPHILS # (AUTO) 0.1 10^3/uL (0.0-0.2); ABSOLUTE EOSINOPHILS # (AUTO) 0.2 10^3/uL (0.0-0.6); ABSOLUTE LYMPHOCYTES (AUTO) 1.7 10^3/uL (0.5-4.7); ABSOLUTE MONOCYTES (AUTO) 1.1 10^3/uL (0.1-1.4); ABSOLUTE NEUT (AUTO) 11.7 10^3/uL (1.7-8.2); BASOPHILS % (AUTO) 0.8 % (0-2); EOSINOPHILS % (AUTO) 1.3 % (0-6); HEMATOCRIT 37.1 % (37.9-51.0); HEMOGLOBIN 12.6 g/dL (13.5-17.0); LYMPHOCYTES % (AUTO) 11.3 % (13-45); MEAN CORPUSCULAR HEMOGLOBIN 31.1 pg (27.0-33.4); MEAN CORPUSCULAR HGB CONC 33.9 g/dL (32.0-36.0); MEAN CORPUSCULAR VOLUME 92 fl (80-97); MONOCYTES % (AUTO) 7.6 % (3-13); PLATELET COUNT 179 10^3/uL (150-450); RED BLOOD COUNT 4.05 10^6/uL (4.35-5.55); RED CELL DISTRIBUTION WIDTH 12.7 % (11.5-14.0); TOTAL CELLS COUNTED % (AUTO) 100 %; WHITE BLOOD COUNT 14.7 10^3/uL (4.0-10.5)
[2018-10-16] MEDS: KETOROLAC TROMETHAMINE INJ/PF 30 MG/1 ML SDV IV PRN ×2 (10:47→18:37)
[2018-10-16 11:07] LABS: ANION GAP 6 (5-19); BLOOD UREA NITROGEN 13 mg/dL (7-20); CALCIUM 8.6 mg/dL (8.4-10.2); CARBON DIOXIDE 26 mmol/L (22-30); CHLORIDE 104 mmol/L (98-107); GLUCOSE 146 mg/dL (75-110); POTASSIUM 4.4 mmol/L (3.6-5.0)
[2018-10-17] MEDS: KETOROLAC TROMETHAMINE INJ/PF 30 MG/1 ML SDV IV PRN ×3 (00:46→21:29)
[2018-10-17] MEDS: POTASSI CL 20 MEQ/D5-1/2NS 1L 1,000 ML IV PRN ×3 (00:47→21:29)
[2018-10-17] MEDS: PIPERACILLIN SODIUM/TAZOBACTAM 3.375 GM in NORMAL SALINE 100 ML IV SCH ×3 (05:07→17:06)
[2018-10-17] MEDS: HEPARIN SOD (PORCINE) 5,000 UNIT/ML 1 ML VIAL SUBCUT SCH ×3 (05:39→21:29)
[2018-10-17] MEDS: METRONIDAZOLE 500 MG/NS RTU 500 MG/100 ML RTUPB IV SCH ×3 (05:40→21:24)
[2018-10-17 09:41] LABS: ABSOLUTE BASOPHILS # (AUTO) 0.1 10^3/uL (0.0-0.2); ABSOLUTE EOSINOPHILS # (AUTO) 0.6 10^3/uL (0.0-0.6); ABSOLUTE LYMPHOCYTES (AUTO) 1.8 10^3/uL (0.5-4.7); ABSOLUTE MONOCYTES (AUTO) 1.1 10^3/uL (0.1-1.4); ABSOLUTE NEUT (AUTO) 9.2 10^3/uL (1.7-8.2); BASOPHILS % (AUTO) 0.9 % (0-2); EOSINOPHILS % (AUTO) 4.5 % (0-6); HEMATOCRIT 44.1 % (37.9-51.0); HEMOGLOBIN 14.6 g/dL (13.5-17.0); LYMPHOCYTES % (AUTO) 14.3 % (13-45); MEAN CORPUSCULAR HEMOGLOBIN 30.4 pg (27.0-33.4); MEAN CORPUSCULAR HGB CONC 33.2 g/dL (32.0-36.0); MEAN CORPUSCULAR VOLUME 92 fl (80-97); MONOCYTES % (AUTO) 8.3 % (3-13); PLATELET COUNT 231 10^3/uL (150-450); RED BLOOD COUNT 4.81 10^6/uL (4.35-5.55); RED CELL DISTRIBUTION WIDTH 12.7 % (11.5-14.0); TOTAL CELLS COUNTED % (AUTO) 100 %; WHITE BLOOD COUNT 12.7 10^3/uL (4.0-10.5)
[2018-10-17] MEDS: FAMOTIDINE INJ/PF 20 MG/2 ML SDV IV SCH ×2 (09:44→21:29)
--- NOTE | 2018-10-17 11:10 | PDOC PROGRESS REPORT ---
Subjective Progress Note for:: 10/17/18 Subjective:: Patient feels well, wants to eat, wants to go home. Having some gas in his ostomy Reason For Visit: PERFORATED VISCUS Physical Exam Vital Signs: Temp Pulse Resp BP Pulse Ox 97.6 F 53 L 18 123/75 99 10/17/18 07:33 10/17/18 07:33 10/17/18 07:33 10/17/18 07:33 10/17/18 07:33 Intake & Output 10/16/18 10/17/18 10/18/18 06:59 06:59 06:59 Intake Total 4220 2818 1000 Output Total 2350 2500 Balance 8432 587 0621 Weight 83.6 kg 84.9 kg General appearance: PRESENT: no acute distress GI/Abdominal exam: PRESENT: other - Abdomen examined jalyn and other port site dressings all removed. Ostomy with gas; some edema minimal stool. Results Laboratory Results: 10/17/18 09:15 10/16/18 10:02 10/16/18 10/17/18 10:02 09:15 WBC 12.7 H RBC 4.81 Hgb 14.6 Hct 44.1 MCV 92 MCH 30.4 MCHC 33.2 RDW 12.7 Plt Count 231 Seg Neutrophils % 72.0 Lymphocytes % 14.3 Monocytes % 8.3 Eosinophils % 4.5 Basophils % 0.9 Absolute Neutrophils 9.2 H Absolute Lymphocytes 1.8 Absolute Monocytes 1.1 Absolute Eosinophils 0.6 Absolute Basophils 0.1 Sodium 136.2 L Potassium 4.4 Chloride 104 Carbon Dioxide 26 Anion Gap 6 BUN 13 Creatinine 0.69 Est GFR ( Amer) > 60 Est GFR (Non-Af Amer) > 60 Glucose 146 H Calcium 8.6 10/14/18 18:50 Abdominal Fluid Gram Stain - Final Impressions: Abdomen/Pelvis CT 10/14/18 13:03 IMPRESSION: Pneumoperitoneum consistent with ruptured viscus. Free fluid in the right lateral gutter mesenteric inflammation in the pelvis along with small pockets of loculated extraluminal air. Scrotum Ultrasound 10/14/18 13:08 IMPRESSION: Small left-sided varicocele. No other significant findings. KUB X-Ray 10/14/18 19:59 IMPRESSION: Postoperative appearance. Grossly nonobstructive bowel gas p attern. Nasogastric tube tip and side port in the stomach. Chest X-Ray 10/15/18 00:00 IMPRESSION: Cannot entirely exclude a minimal air beneath the right hemidiaphragm. No acute findings in the chest. Assessment & Plan - Diagnosis (1) Diverticulitis of colon with perforation Is this a current diagnosis for this admission?: Yes Plan: Pression: Patient is postoperative day 3 status post Lai's procedure for benign perforation of the sigmoid colon; intraperitoneal cultures growing back towards fragilis, Clostridium, and Prevotella on Zosyn; white count down to 12.7. Now having bowel function. Recommendations: 1. Leave wounds exposed 2. Get in shower 3. Start clear liquids 4. Teach patient ostomy care 5. Anticipate discharge home the next 24 to 48 hours.
[2018-10-17] MEDS: MORPHINE SULFATE 10 MG/ML INJ IV PRN ×2 (14:40→19:37)
[2018-10-18] MEDS: PIPERACILLIN SODIUM/TAZOBACTAM 3.375 GM in NORMAL SALINE 100 ML IV SCH ×3 (00:23→12:05)
[2018-10-18] MEDS: MORPHINE SULFATE 10 MG/ML INJ IV PRN ×2 (00:42→06:40)
[2018-10-18] MEDS: METRONIDAZOLE 500 MG/NS RTU 500 MG/100 ML RTUPB IV SCH ×2 (05:24→14:05)
[2018-10-18] MEDS: HEPARIN SOD (PORCINE) 5,000 UNIT/ML 1 ML VIAL SUBCUT SCH ×2 (05:25→14:05)
[2018-10-18] MEDS: FAMOTIDINE INJ/PF 20 MG/2 ML SDV IV SCH (09:23)
[2018-10-18] MEDS ORDERED: KETOROLAC TROMETHAMINE 10 MG TABLET PO PRN (09:24)
[2018-10-18 10:13] LABS: ABSOLUTE BASOPHILS # (AUTO) 0.1 10^3/uL (0.0-0.2); ABSOLUTE EOSINOPHILS # (AUTO) 0.5 10^3/uL (0.0-0.6); ABSOLUTE LYMPHOCYTES (AUTO) 1.1 10^3/uL (0.5-4.7); ABSOLUTE MONOCYTES (AUTO) 0.9 10^3/uL (0.1-1.4); BASOPHILS % (AUTO) 0.9 % (0-2); HEMATOCRIT 37.8 % (37.9-51.0); LYMPHOCYTES % (AUTO) 15.1 % (13-45); MEAN CORPUSCULAR HEMOGLOBIN 31.6 pg (27.0-33.4); MEAN CORPUSCULAR HGB CONC 34.5 g/dL (32.0-36.0); MEAN CORPUSCULAR VOLUME 92 fl (80-97); MONOCYTES % (AUTO) 11.4 % (3-13); PLATELET COUNT 278 10^3/uL (150-450); RED BLOOD COUNT 4.13 10^6/uL (4.35-5.55); RED CELL DISTRIBUTION WIDTH 12.4 % (11.5-14.0); SEGMENTED NEUTROPHILS % (AUTO) 65.6 % (42-78); TOTAL CELLS COUNTED % (AUTO) 100 %; WHITE BLOOD COUNT 7.6 10^3/uL (4.0-10.5)
--- NOTE | 2018-10-18 15:42 | PDOC DISCHARGE SUMMARY ---
General - Admit/Disc Date/PCP Admission Date/Primary Care Provider: 10/14/18 16:52 FORREST MEMO, Discharge Date: 10/18/18 - Discharge Diagnosis (1) Diverticulitis of colon with perforation Is this a current diagnosis for this admission?: Yes Summary: See hospital course below - Additional Information Resuscitation Status: Full Code Discharge Diet: As Tolerated Discharge Activity: Activity As Tolerated Home Medications: No Home Medications 10/14/18 History of Present Illness History of Present Illness: NAI AUSTIN is a 38 year old male See HPI Hospital Course Hospital Course: The patient is a 38-year-old white male presents the emergency department complaining of acute onset abdominal pain nausea, and joint pain, fever and tachycardia. A CT scan of the abdomen pelvis which showed pneumoperitoneum and pelvic fluid. Surgery was consulted and patient was admitted to the surgical service for definitive management. Patient was kept n.p.o. on IV fluids intra venous antibiotics and taken to the operating room by Dr. Mansoor Samuel 10/13 2018 where he underwent laparoscopic conversion to laparotomy, sigmoid colectomy, colostomy, and Lai's procedure for perforated sigmoid colon. The patient tolerated the operation well. He had a closed midline incision with no drains. He was maintained on intravenous antibiotics for 4 days postoperatively. He grew out a variety of organisms commensurate with coliform bacteria. Patient was instructed on ostomy care which he demonstrated proficiency at. He was started on diet and this was advanced and tolerated well. He showered and his midline incision was without drainage. He was switched from narcotics to Toradol. By the fourth postoperative day he was ready for discharge home. Physical Exam Vital Signs: Temp Pulse Resp BP Pulse Ox 98.3 F 57 L 18 131/85 H 97 10/18/18 12:13 10/18/18 12:13 10/18/18 12:13 10/18/18 12:13 10/18/18 12:13 Intake & Output 10/17/18 10/18/18 10/19/18 06:59 06:59 06:59 Intake Total 2818 2940 1100 Output Total 2500 Balance 318 2940 1100 Weight 84.9 kg 85.5 kg Results Laboratory Results: 10/18/18 09:59 10/16/18 10:02 10/18/18 09:59 WBC 7.6 RBC 4.13 L Hgb 13.0 L Hct 37.8 L MCV 92 MCH 31.6 MCHC 34.5 RDW 12.4 Plt Count 278 Seg Neutrophils % 65.6 Lymphocytes % 15.1 Monocytes % 11.4 Eosinophils % 7.0 H Basophils % 0.9 Absolute Neutrophils 5.0 Absolute Lymphocytes 1.1 Absolute Monocytes 0.9 Absolute Eosinophils 0.5 Absolute Basophils 0.1 10/14/18 20:30 Blood Blood Culture - Final Bacteroides Fragilis Group 10/14/18 15:45 Blood Blood Culture - Final Bacteroides Fragilis Group Corynebacterium Species 10/14/18 18:50 Abdominal Fluid Gram Stain - Final Impressions: Abdomen/Pelvis CT 10/14/18 13:03 IMPRESSION: Pneumoperitoneum consistent with ruptured viscus. Free fluid in the right lateral gutter mesenteric inflammation in the pelvis along with small pockets of loculated extraluminal air. Scrotum Ultrasound 10/14/18 13:08 IMPRESSION: Small left-sided varicocele. No other significant findings. KUB X-Ray 10/14/18 19:59 IMPRESSION: Postoperative appearance. Grossly nonobstructive bowel gas pattern. Nasogastric tube tip and side port in the stomach. Chest X-Ray 10/15/18 00:00 IMPRESSION: Cannot entirely exclude a minimal air beneath the right hemidiaphragm. No acute findings in the chest. Qualifiers - * PATIENT BEING DISCHARGED WITH ANY OF THE FOLLOWING DIAGNOSIS: No Acute Heart Failure - Is this a Heart Failure Patient?: No Plan Discharge Plan: Patient will be discharged home to care of his family, shower, provide his own colostomy maintenance, and will call [facility] on October 19, for an appointment to see Dr. Mansoor Samuel in approximately 1 week. He will take Toradol p.o. as needed pain, and Flagyl 500 mg p.o. 3 times daily as scheduled.
[2018-10-18 16:21] VITALS: BP 137/81
== END 2018-10-18 17:47 | disposition home or self-care (01) | DRG 331 ==
LOC: ER 12:14 → EH 16:52 → EEVIPCON 16:52 → 4N 21:18
PROVIDERS: ADMIT Surgery; ATTEND Surgery
PROC: 0DTJ0ZZ Resection of Appendix, Open Approach (ICD-10-PCS; 2018-10-14)
PROC: 0D1M0Z4 Bypass Descending Colon to Cutaneous, Open Approach (ICD-10-PCS; 2018-10-14)
PROC: 0WJG4ZZ Inspection of Peritoneal Cavity, Percutaneous Endoscopic Approach (ICD-10-PCS; 2018-10-14)
PROC: 0DTN0ZZ Resection of Sigmoid Colon, Open Approach (ICD-10-PCS; principal; 2018-10-14 17:30)
DX: K57.20 Diverticulitis of large intestine with perforation and abscess without bleeding (principal); I10 Essential (primary) hypertension; J45.909 Unspecified asthma, uncomplicated; E11.9 Type 2 diabetes mellitus without complications; F90.9 Attention-deficit hyperactivity disorder, unspecified type; F32.9 Major depressive disorder, single episode, unspecified; F17.200 Nicotine dependence, unspecified, uncomplicated; F10.10 Alcohol abuse, uncomplicated; F15.10 Other stimulant abuse, uncomplicated; F14.10 Cocaine abuse, uncomplicated; F12.10 Cannabis abuse, uncomplicated; M25.50 Pain in unspecified joint; B96.20 Unspecified Escherichia coli [E. coli] as the cause of diseases classified elsewhere; Z79.84 Long term (current) use of oral hypoglycemic drugs; Z88.8 Allergy status to other drugs, medicaments and biological substances; Z53.31 Laparoscopic surgical procedure converted to open procedure
CPT/HCPCS: 36415; 71045; 74018; 74177; 76870; 790; 80048; 80053; 81001; 82803; 83605; 83690; 85025; 87040; 87070; 87075; 87077; 87186; 87205; 88307; 93976; 94799; 96361; 96365; 96375; 99285; J0131; J0330; J1170; J1335; J1644; J1885; J2250; J2270; J2543; J2704; J2710; J2765; J3010; J3480; J3490; J7030; J7050; S0028; S0119